=== PATIENT | male | born 1960 | race Caucasian/White ===

== ENCOUNTER 2017-10-25 11:09 | Outpatient (CLI) | payer BC | END 2017-10-25 11:10 | disposition home or self-care (01) | LOC: MRI 11:09 | PROVIDERS: ATTEND Orthopaedic Surgery | DX: M25.572 Pain in left ankle and joints of left foot (principal); M67.962 Unspecified disorder of synovium and tendon, left lower leg; M76.62 Achilles tendinitis, left leg | CPT/HCPCS: 70250; 71010; 74000 ==

== ENCOUNTER 2018-12-01 18:04 | Emergency (ER) | payer OTHER ==
[2018-12-01] MEDS ORDERED: Morphine 4 MG/ML VIAL ONE (18:58)
[2018-12-01 19:13] LABS: #Basophils 0.1 thou/uL (0.0-0.2); #Eosinphils 0.1 thou/uL (0.0-0.7); #Lymphocytes 2.1 thou/uL (1.20-3.40); #Monocytes 0.6 thou/uL (0.11-0.59); #Neutrophils 2.8 thou/uL (1.40-6.50); %Basophils 1.4 % (0.0-1.0); %Eosinophils 1.3 % (0.0-10.0); %Lymphocytes 37.3 % (21.0-51.0); %Monocytes 10.1 % (0.0-10.0); %Neutrophils 49.8 % (42.0-75.0); Mean Corpuscular HGB CONC 33.8 g/dL (32.0-36.0); Mean Corpuscular Hemoglobin 31.2 pg (27.0-31.0); Mean Corpuscular Volume 92.1 fL (78.0-98.0); Mean Platelet Volume 8.6 fL (7.4-10.4); Platelet Count 203 thou/uL (130-400); RBC Distribution Width 11.5 % (11.5-14.5); White Blood Cell (WBC) Count 5.6 thou/uL (4.8-10.8)
--- NOTE | 2018-12-01 19:27 | RAD ---
LUMBAR SPINE THREE VIEWS: HISTORY: Low stabbing back pain for two weeks. FINDINGS: No evidence for acute fracture or dislocation. Very mild disk osteophytosis and facet arthrosis bhardwaj ges. No malalignment. IMPRESSION: 1. Mild lumbar spondylosis. 2. No fracture, dislocation, or other acute process. POS: [facility]
[2018-12-01 19:38] LABS: ALT (SGPT) Less than 7 U/L (8-55); AST (SGOT) 13 U/L (5-34); Albumin 4.1 g/dL (3.5-5.0); Alkaline Phosphatase 78 U/L (40-150); Anion Gap 13 mmol/L (10-20); BUN (Urea Nitrogen) 16 mg/dL (8.4-25.7); Bilirubin, Total 0.4 mg/dL (0.2-1.2); Calc. Creatinine Clearance 0 mL/min (70-130); Calcium 9.3 mg/dL (7.8-10.44); Carbon Dioxide 28 mmol/L (22-29); Chloride 103 mmol/L (98-107); Estimated GFR-MDRD 72; Glucose 92 mg/dL (70-105); Lipase 22 U/L (8-78); Potassium 3.8 mmol/L (3.5-5.1); Protein, Total 7.1 g/dL (6.0-8.3); Sodium 140 mmol/L (136-145)
[2018-12-01] MEDS ORDERED: Ketorolac Tromethamine 30 MG/ML VIAL ONE (19:53)
[2018-12-01] MEDS ORDERED: Dexamethasone 4 mg/ml Vial ONE (19:53)
[2018-12-01 20:10] LABS: Bilirubin Negative (Negative); Blood, Urine Negative (Negative); Clarity CLEAR (Clear); Glucose, Urine (Dipstick) Negative (Negative); Leukocyte Negative (Negative); Nitrite Negative (Negative); Protein, Urine (Dipstick) Negative (Neg-Trace); Specific Gravity, Urine 1.015 (1.002-1.036)
== END 2018-12-01 20:20 | disposition home or self-care (01) ==
LOC: ERS 18:04
DX: M54.5 Low back pain (principal); I10 Essential (primary) hypertension; G20 Parkinson's disease; Z79.899 Other long term (current) drug therapy
CPT/HCPCS: 72100; 80053; 81003; 83690; 84484; 85025; 93005; 96374; 96375; J1100; J1885; J2270

== ENCOUNTER 2018-12-08 20:03 | Emergency (ER) | payer OTHER ==
[2018-12-08] MEDS ORDERED: Fentanyl 100 MCG/2 ML VIAL ONE (20:46)
[2018-12-08] MEDS ORDERED: Ondansetron PF 4 MG/2 ML Vial ONE (20:46)
[2018-12-08] MEDS ORDERED: Ketorolac Tromethamine 30 MG/ML VIAL ONE (20:46)
[2018-12-08 20:47] LABS: #Eosinphils 0.1 thou/uL (0.0-0.7); #Lymphocytes 2.7 thou/uL (1.20-3.40); #Monocytes 0.5 thou/uL (0.11-0.59); #Neutrophils 3.4 thou/uL (1.40-6.50); %Basophils 0.6 % (0.0-1.0); %Eosinophils 1.7 % (0.0-10.0); %Lymphocytes 40.1 % (21.0-51.0); %Monocytes 7.9 % (0.0-10.0); %Neutrophils 49.6 % (42.0-75.0); Hemoglobin 14.4 g/dL (14.0-18.0); Mean Corpuscular HGB CONC 34.1 g/dL (32.0-36.0); Mean Corpuscular Hemoglobin 31.6 pg (27.0-31.0); Mean Corpuscular Volume 92.7 fL (78.0-98.0); Mean Platelet Volume 7.6 fL (7.4-10.4); Platelet Count 222 thou/uL (130-400); RBC Distribution Width 11.7 % (11.5-14.5); Red Blood Cell (RBC) Count 4.56 mill/uL (4.70-6.10); White Blood Cell (WBC) Count 6.8 thou/uL (4.8-10.8)
[2018-12-08 21:04] LABS: ALT (SGPT) Less than 7 U/L (8-55); AST (SGOT) 14 U/L (5-34); Albumin 4.4 g/dL (3.5-5.0); Alkaline Phosphatase 91 U/L (40-150); Anion Gap 14 mmol/L (10-20); BUN (Urea Nitrogen) 13 mg/dL (8.4-25.7); Bilirubin, Total 0.6 mg/dL (0.2-1.2); Calc. Creatinine Clearance 0 mL/min (70-130); Calcium 9.6 mg/dL (7.8-10.44); Carbon Dioxide 29 mmol/L (22-29); Chloride 101 mmol/L (98-107); Estimated GFR-MDRD 63; Globulin 3.2 g/dL (2.4-3.5); Glucose 93 mg/dL (70-105); Lipase 22 U/L (8-78); Potassium 3.7 mmol/L (3.5-5.1); Protein, Total 7.6 g/dL (6.0-8.3); Sodium 140 mmol/L (136-145)
--- NOTE | 2018-12-08 23:26 | CT ---
CT ABDOMEN AND PELVIS WITHOUT CONTRAST STONE PROTOCOL: History: Flank pain. Comparison: None. FINDINGS: There is concern for a paraspinal mass at the level of the lower thoracic spine at T8 and T9 which is incompletely evaluated and measures 3.1 x 3.9 cm in transverse x AP dimension with unknown craniocau salomón length which extends outside the plane of view. No osseous erosion is appreciated. Small left effusion. No pericardial effusion. Subtle hypodensity hepatic segment 4A, likely a cyst. There appear to be prior proctectomy changes. Hypodensity inter pole of left kidney, likely a cyst. No nephroureterolithiasis or hydroureteronephrosis. No secondary evidence of recently passed stone. N o calculus within the urinary bladder. No adenopathy is seen of the pelvic side rasmussen. No retroperito vanessa adenopathy. Small central hernia containing fat, image 51 with a 1 cm hiatus which is supraumbil ical. No dilated loops of large or small bowel. The appendix is visualized and is normal. There is mild nod ular thickening at the right pararenal fascia at the caudal aspect of the inferior pole right kidney of uncertain significance. No acute osseous abnormality. IMPRESSION: 1. Incompletely evaluated left paraspinal mass mid thoracic spine as described. A thoracic spine MRI with and without contrast is recommended for further evaluation. Differential includes neurogenic gopi or and less likely an extramedullary hematopoiesis. No underlying erosion of the adjacent vertebrae. 2. Left renal cyst. 3. No nephroureterolithiasis or hydroureteronephrosis. No secondary evidence of recently passed stone . 4. Small supraumbilical right paramidline fat containing ventral hernia, post-surgical in nature, as there appears to be prior prostatectomy changes. POS: [facility]
== END 2018-12-08 22:58 | disposition home or self-care (01) ==
LOC: ERS 20:03
DX: M51.84 Other intervertebral disc disorders, thoracic region (principal); G20 Parkinson's disease; Z79.899 Other long term (current) drug therapy; Z79.1 Long term (current) use of non-steroidal anti-inflammatories (NSAID)
CPT/HCPCS: 74176; 80053; 83690; 85025; 96361; 96374; 96375; J1885; J2405; J3010

== ENCOUNTER 2018-12-19 08:10 | Day surgery (SDC) | payer OTHER ==
[2018-12-18 12:37] VITALS: BMI 34.5
[2018-12-19 08:35] LABS: Prothrombin Time 12.9 SEC (12.0-14.7)
[2018-12-19 08:36] LABS: Hemoglobin 14.6 g/dL (14.0-18.0); Mean Corpuscular HGB CONC 33.2 g/dL (32.0-36.0); Mean Corpuscular Hemoglobin 30.9 pg (27.0-31.0); PTT 27.6 SEC (22.9-36.1); Platelet Count 209 thou/uL (130-400); RBC Distribution Width 11.6 % (11.5-14.5); Red Blood Cell (RBC) Count 4.72 mill/uL (4.70-6.10); White Blood Cell (WBC) Count 4.8 thou/uL (4.8-10.8)
[2018-12-19] MEDS ORDERED: Sodium Chloride 0.9% 10 ML ONE (09:27)
[2018-12-19] MEDS ORDERED: Sodium Bicarbonate 2.5 MEQ/5 ML VIAL ONE (10:35)
[2018-12-19] MEDS ORDERED: Fentanyl 100 MCG/2 ML VIAL ONE (10:35)
[2018-12-19] MEDS ORDERED: Midazolam HCl 2 mg/2 ml Vial ONE (10:36)
--- NOTE | 2018-12-19 17:20 | CT ---
CT GUIDED BIOPSY OF LEFT PARASPINOUS MASS 12/19/18 CLINICAL HISTORY: Soft tissue mass of indeterminate etiology of the left paraspinous region of the medial left elijah tho rax. PROCEDURE: Informed consent was obtained. The patient was escorted to the Procedural Suite and placed in the pro ne position. The patient's posterior thorax was then prepped and draped in the standard sterile fash ion. Topical anesthesia was achieved with buffered 1% lidocaine. A small skin incision was made throu gh which a 17 gauge trocar was advanced to the leading edge of the mass. The inner stylet was removed and subsequently three core specimens were acquired of the mass. These were submitted to the patholo gist during the procedure and the specimens were deemed adequate for interpretation. Therefore, all d evices were removed from the patient. There were no procedural complications. Patient tolerated the p rocedure well. Patient was then transferred to Radiology holding for continued observation prior to d ischarge in stable condition. Conscious sedation was administered for the duration of the procedure during which time patient was m onitored by the radiology nurse. Approximate time of conscious sedation monitoring is one hour. IMPRESSION: Technically successful CT guided percutaneous biopsy of left paraspinous mass. Pathology results are pending. POS: [facility]
== END 2018-12-19 12:20 | disposition home or self-care (01) ==
LOC: CT 08:10
PROVIDERS: ATTEND Neurological Surgery
DX: M54.6 Pain in thoracic spine (principal); M53.84 Other specified dorsopathies, thoracic region; J45.909 Unspecified asthma, uncomplicated; G20 Parkinson's disease; F32.9 Major depressive disorder, single episode, unspecified; E66.9 Obesity, unspecified; Z68.34 Body mass index [BMI] 34.0-34.9, adult; Z79.899 Other long term (current) drug therapy
CPT/HCPCS: 72128; 77012; 85027; 85610; 85730; 88184; 88233; 88262; 88291; 88305; 88333; 88334; J2250; J3010

== ENCOUNTER 2018-12-22 16:28 | Emergency (ER) | payer OTHER ==
[2018-12-22] MEDS ORDERED: ISOVUE-370 76%-LOCM 1 ML ONE (16:58)
[2018-12-22] MEDS ORDERED: Morphine 4 MG/ML VIAL ONE (17:10)
[2018-12-22] MEDS ORDERED: Ondansetron PF 4 MG/2 ML Vial ONE (17:10)
[2018-12-22 17:20] LABS: #Basophils 0.1 thou/uL (0.0-0.2); #Lymphocytes 1.7 thou/uL (1.20-3.40); #Monocytes 0.3 thou/uL (0.11-0.59); #Neutrophils 2.1 thou/uL (1.40-6.50); %Basophils 1.6 % (0.0-1.0); %Eosinophils 1.2 % (0.0-10.0); %Lymphocytes 40.6 % (21.0-51.0); %Monocytes 6.2 % (0.0-10.0); %Neutrophils 50.4 % (42.0-75.0); Hemoglobin 14.8 g/dL (14.0-18.0); Mean Corpuscular HGB CONC 33.6 g/dL (32.0-36.0); Mean Corpuscular Hemoglobin 31.6 pg (27.0-31.0); Mean Corpuscular Volume 94.1 fL (78.0-98.0); Mean Platelet Volume 8.1 fL (7.4-10.4); Platelet Count 186 thou/uL (130-400); RBC Distribution Width 11.6 % (11.5-14.5); Red Blood Cell (RBC) Count 4.67 mill/uL (4.70-6.10); White Blood Cell (WBC) Count 4.1 thou/uL (4.8-10.8)
[2018-12-22 17:26] LABS: Bilirubin Negative (Negative); Blood, Urine Negative (Negative); Clarity CLEAR (Clear); Glucose, Urine (Dipstick) Negative (Negative); Leukocyte Negative (Negative); Nitrite Negative (Negative); Protein, Urine (Dipstick) Negative (Neg-Trace); Specific Gravity, Urine 1.026 (1.002-1.036); Urobilinogen 0.2 mg/dL (0.2-1.0)
[2018-12-22 17:32] LABS: ALT (SGPT) 7 U/L (8-55); AST (SGOT) 25 U/L (5-34); Albumin 4.6 g/dL (3.5-5.0); Alkaline Phosphatase 95 U/L (40-150); Anion Gap 17 mmol/L (10-20); BUN (Urea Nitrogen) 13 mg/dL (8.4-25.7); Bilirubin, Total 0.6 mg/dL (0.2-1.2); Calc. Creatinine Clearance 0 mL/min (70-130); Calcium 9.9 mg/dL (7.8-10.44); Carbon Dioxide 28 mmol/L (22-29); Chloride 102 mmol/L (98-107); Estimated GFR-MDRD 70; Globulin 3.4 g/dL (2.4-3.5); Glucose 92 mg/dL (70-105); Lipase 35 U/L (8-78); Potassium 3.7 mmol/L (3.5-5.1); Sodium 143 mmol/L (136-145)
--- NOTE | 2018-12-22 18:37 | CT ---
ABDOMEN CT WITH CONTRAST PELVIC CT WITH CONTRAST: History: Evaluate for small bowel obstruction. Abdominal pain. Last bowel movement four days ago. Comparison: 12-08-18 FINDINGS: ABDOMEN CT: Redemonstration of a small left sided effusion with adjacent parenchymal changes. There is a left par aspinal mass which has been recently biopsied. Heart size is normal. No pericardial effusion. The steven cending thoracic aorta and abdominal aorta is normal caliber. No periaortic fat stranding. Portal vein is patent. Unremarkable gallbladder. There is a well circumscribed hypodensity in the liver measuring 0.7 cm. The lesion cannot be further characterized. There is a larger well circumscribed hypodense lesion in the left hepatic lobe measur ing 0.9 cm. Additional smaller hypodense lesions are noted. Spleen, pancreas, and adrenal glands are unremarkable. No gastrohepatic, retrocrural or periportal lymphadenopathy. Symmetric enhancement of the kidneys. No obstructive uropathy. 3 cm cyst in the left kidney. Exophyti c enhancing focus emanating from the lower pole of the right kidney is incompletely evaluated. Possib ility of a right renal mass cannot be excluded. Correlation made with previous CT demonstrates a hypo dense lesion. This lesion has an attenuation coefficient of 77 Hounsfield units and measures 1.4 x 1. 4 cm. No mesenteric mass, lymphadenopathy, free air, or free fluid. A ventral abdominal hernia containing m esenteric fat. Limited evaluation of the alimentary canal due to lack of oral contrast. Gastric mucosa, duodenum, an d multiple small bowel loops have an overall normal caliber. No evidence of small bowel obstruction. Ileocecal junction is normal. Normal caliber appendix. Scattered diverticulum in the colon. No eviden ce of obstruction. No evidence of diverticulitis. CT PELVIS: No mass, lymphadenopathy, free air or free fluid. Unremarkable urinary bladder. No blastic lesions in the osseous structures. There is remottling of the left aspect of the T8 verteb ral body as well as the left T8 rib. IMPRESSION: 1. No evidence of small bowel obstruction. 2. Re-demonstration of the left paraspinal mass. This mass has been biopsied. Pathologic diagnosis pe nding. 3. There appears to be an enhancing solid lesion in the lower pole of the right kidney, incompletely evaluated. 4. Left sided effusion with atelectasis or pneumonia. POS: [facility]
== END 2018-12-22 18:54 | disposition home or self-care (01) ==
LOC: ERS 16:28
DX: K59.00 Constipation, unspecified (principal); G20 Parkinson's disease; Z79.899 Other long term (current) drug therapy
CPT/HCPCS: 74177; 80053; 81003; 82274; 83690; 85025; 96361; 96374; 96375; J2270; J2405; Q9966

== ENCOUNTER 2019-01-02 09:53 | Outpatient (CLI) | payer OTHER ==
--- NOTE | 2019-01-02 13:54 | PET ---
PET CT FROM SKULL BASE THROUGH THE MID THIGH: INDICATION: History of extramedullary plasmacytoma. RADIOPHARMACEUTICAL: 11.9 mCi F18-FDG IV. TECHNIQUE: PET CT images were obtained from the skull base through the mid thighs following introduction of the radiopharmaceutical IV. CT images were obtained for attenuation correction purposes only. Compariso ns are made with prior CT of the abdomen and pelvis dated 12/22/2018 and 12/08/2018. FINDINGS: The biodistribution for the examination appears acceptable. HEAD AND NECK: No hypermetabolic lymphadenopathy or mass is identified. There is partial visualization of a deep brain stimulator with a generator pack overlying the left ch est wall. THORAX: The known paraspinal soft tissue mass seen at the T8 vertebral level causing bony erosion of the timoteo cent left 8th rib and left T8 vertebra is redemonstrated with a peak SUV activity of 4.84 and mean ac tivity of 4.28. There is additional paraspinal soft tissue mass seen adjacent to the left aspect of T6 measuring 1.92 cm with a peak SUV activity of 8.87 and mean activity of 8.49. There is a small left pleural effusi on. No hypermetabolic pulmonary nodule is evident. No hypermetabolic lymphadenopathy is seen within the hilar region or axillary region. ABDOMEN: There is a hypermetabolic soft tissue nodule measuring 1.5 cm extending off the inferior pole of the right kidney. Peak SUV activity associated with this nodule is 6.22 and mean activity is 6.22. No additional hypermetabolic mass or lymphadenopathy is evident. SKIN AND OSSEOUS STRUCTURES: There is a lytic hypermetabolic lesion involving the left acetabulum measuring 2.7 cm with a mean upt ian of 6.15 peak uptake of 7.27. No additional hypermetabolic skin or osseous lesion is evident. Th ere is some urinary contamination seen along the perineal region. IMPRESSION: 1. Abnormal PET scan. There is hypermetabolic activity involving 2 associated paraspinal soft tissu e masses at T6 and T8 consistent with the patient's history of extramedullary plasmacytoma. 2. There is a hypermetabolic exophytic soft tissue lesion mass involving the lower pole of the right kidney measuring up to 1.5 cm suspicious for renal malignancy. 3. Hypermetabolic lytic lesion involving the left acetabulum, likely related to osseous involvement of the patient's known plasmacytoma. 4. Small left pleural effusion. 5. Deep brain stimulator. POS: [facility]
== END 2019-01-02 09:54 | disposition home or self-care (01) ==
LOC: PET 09:53
PROVIDERS: ATTEND Internal Medicine Hematology & Oncology
DX: C90.20 Extramedullary plasmacytoma not having achieved remission (principal); R94.8 Abnormal results of function studies of other organs and systems; N28.89 Other specified disorders of kidney and ureter; M89.9 Disorder of bone, unspecified; J90 Pleural effusion, not elsewhere classified; Z96.89 Presence of other specified functional implants
CPT/HCPCS: 78815; A9552

== ENCOUNTER 2019-01-06 08:54 | Day surgery (SDC) | payer OTHER ==
[2019-01-03 11:18] VITALS: BMI 34.4
[2019-01-06] MEDS ORDERED: Sodium Bicarbonate 2.5 MEQ/5 ML VIAL ONE (09:48)
[2019-01-06] MEDS ORDERED: Fentanyl 100 MCG/2 ML VIAL ONE (09:49)
[2019-01-06] MEDS ORDERED: Midazolam HCl 2 mg/2 ml Vial ONE (09:49)
--- NOTE | 2019-01-06 14:10 | CT ---
CT GUIDED BONE MARROW BIOPSY POSTERIOR LEFT ILIAC SPINE: INDICATIONS: Prior biopsy revealed evidence of plasmocytoma. Bone marrow biopsy is requested to assess for multip le myeloma. The findings were discussed with the patient. ANESTHESIA: Conscious sedation was administered with 50 mcg of fentanyl IV and 1 mg Versed IV prior to the patien t procedure. TECHNIQUE: Arrow 11 gauge biopsy instrument was utilized and 10 mL of bone marrow aspirate was obtained and give n to the medical technologist clinical at CT. A core biopsy through the bone was then obtained, and patholog y confirmed adequacy. PROCEDURE NOTE: The patient was placed prone on the CT table. CT was performed to identify the entry site. The over lying skin was prepped and draped in a sterile manner. Local anesthesia was administered with Lidoca ine and bicarbonate. Conscious sedation was administered as noted above. An 11 gauge needle with trocar in place was introduced into the posterior left iliac spine, under CT guidance. The trocar was removed, and bone marrow aspirate was obtained and given to the pathology t echnician. The Arrow automated instrument was then attached to the needle, and a 2 cm length core bi opsy was obtained and given to pathology. Post procedure CT showed no significant hemorrhage or bone abnormality. The patient tolerated the procedure well, and there were no problems or complications. POS: [facility]
--- NOTE | 2019-01-07 14:19 | CT ---
CT GUIDED BONE MARROW BIOPSY POSTERIOR LEFT ILIAC SPINE: INDICATIONS: Prior biopsy revealed evidence of plasmocytoma. Bone marrow biopsy is requested to assess for multip le myeloma. The findings were discussed with the patient. ANESTHESIA: Conscious sedation was administered with 50 mcg of fentanyl IV and 1 mg Versed IV prior to the patien t procedure. TECHNIQUE: Arrow 11 gauge biopsy instrument was utilized and 10 mL of bone marrow aspirate was obtained and give n to the anesthesiology technologist at CT. A core biopsy through the bone was then obtained, and patholog y confirmed adequacy. PROCEDURE NOTE: The patient was placed prone on the CT table. CT was performed to identify the entry site. The over lying skin was prepped and draped in a sterile manner. Local anesthesia was administered with Lidoca ine and bicarbonate. Conscious sedation was administered as noted above. An 11 gauge needle with trocar in place was introduced into the posterior left iliac spine, under CT guidance. The trocar was removed, and bone marrow aspirate was obtained and given to the pathology t echnician. The Arrow automated instrument was then attached to the needle, and a 2 cm length core bi opsy was obtained and given to pathology. Post procedure CT showed no significant hemorrhage or bone abnormality. The patient tolerated the procedure well, and there were no problems or complications.
== END 2019-01-06 11:50 | disposition home or self-care (01) ==
LOC: RAD 08:54
PROVIDERS: ATTEND Internal Medicine Hematology & Oncology
PROC: 07DR3ZX Extraction of Iliac Bone Marrow, Percutaneous Approach, Diagnostic (ICD-10-PCS; principal; 2019-01-06)
DX: C90.20 Extramedullary plasmacytoma not having achieved remission (principal); G20 Parkinson's disease; F32.9 Major depressive disorder, single episode, unspecified; K21.9 Gastro-esophageal reflux disease without esophagitis; K59.00 Constipation, unspecified; J45.909 Unspecified asthma, uncomplicated; Z79.899 Other long term (current) drug therapy
CPT/HCPCS: 20225; 77012; 85097; 88184; 88237; 88305; 88311; 88313; 88341; J2250; J3010

== ENCOUNTER 2019-01-09 10:23 | Outpatient (CLI) | payer OTHER ==
[2019-01-09] MEDS ORDERED: Iopamidol 370 76% 100 ML VIAL ONE (12:04)
--- NOTE | 2019-01-09 13:10 | CT ---
CT OF ABDOMEN PERFORMED WITH AND WITHOUT CONTRAST ENHANCEMENT: COMPARISON: PET scan 01/02/[address] 12/22/2018. HISTORY: Right renal mass evaluation using renal mass protocol. The patient also has a history of extramedull monae plasmacytoma. FINDINGS: A small left pleural effusion is seen. The left paravertebral soft tissue mass is again visualized. It is not seen in its entirety and difficult to compare for size. It has not decreased in size. Th ere appears to be some slightly greater extension along the posterior border of the aorta. Also, the re is worsening lytic bony change of the left 8th rib at the costovertebral junction and worsening ly tic bony change in the region of the left side of T8 vertebral body and pedicle region. No pathologi c fracture noted at this time. Two hypodense areas within the left lobe of the liver are subcentimeter in size, stable in appearance . The spleen, pancreas, and gallbladder regions are normal. Right and left adrenal glands are normal. Left renal cyst is again demonstrated. The lower pole tim l mass measures approximately 1.7 cm in size. It does show enhancement on precontrast images. It me asures 27 Hounsfield units increasing to 67 Hounsfield units on the arterial phase and decreasing sli ghtly to 40 on the delayed imaging. No significant periaortic or mesenteric adenopathy. A fat-conta ining supraumbilical hernia is noted. IMPRESSION: 1. Enhancing 1.7 cm lower pole exophytic right renal mass. The finding would be suspicious for a re nal cell carcinoma. 2. Although the left paravertebral soft tissue mass is not seen in its entirety, I think it has slig htly increased in size and there is definitely worsening lytic bony change of the left 8th rib at th e costovertebral junction and worsening lytic bony change along the left pedicle and body of T8. POS: [facility]
== END 2019-01-09 10:24 | disposition home or self-care (01) ==
LOC: BICCT 10:23
PROVIDERS: ATTEND Internal Medicine Hematology & Oncology
DX: C90.20 Extramedullary plasmacytoma not having achieved remission (principal); N28.89 Other specified disorders of kidney and ureter
CPT/HCPCS: 74170; Q9967

== ENCOUNTER 2019-01-21 08:21 | Day surgery (SDC) | payer OTHER ==
[2019-01-20 15:05] VITALS: BMI 34.4
[2019-01-21 08:35] LABS: Hemoglobin 13.9 g/dL (14.0-18.0); Mean Corpuscular HGB CONC 34.1 g/dL (32.0-36.0); Mean Corpuscular Hemoglobin 31.3 pg (27.0-31.0); Mean Corpuscular Volume 91.7 fL (78.0-98.0); Mean Platelet Volume 7.8 fL (7.4-10.4); Platelet Count 175 thou/uL (130-400); RBC Distribution Width 11.5 % (11.5-14.5); Red Blood Cell (RBC) Count 4.44 mill/uL (4.70-6.10); White Blood Cell (WBC) Count 6.1 thou/uL (4.8-10.8)
[2019-01-21 08:42] LABS: INR-International Normal Ratio 1.1; PTT 28.6 SEC (22.9-36.1); Prothrombin Time 14.1 SEC (12.0-14.7)
--- NOTE | 2019-01-21 14:00 | CT ---
FCT-guided biopsy of right renal mass: 01/21/2019 HISTORY: 58-year-old male with multiple myeloma who has a pedunculated enhancing small 1.7 cm tumor mass exoph ytically protruding inferiorly from the lower pole cortex of the right kidney. Suspicious for renal c ell carcinoma. TECHNIQUE: Signed informed consent obtained. Patient placed prone on CT table. Skin of right flank prepared and draped in usual sterile fashion. 25-gauge needle used to apply buffered lidocaine superficially. Unde r step CT guidance, 17-gauge introducer needle was incrementally advanced, first to the posterior lat eral abdominal wall just lateral to the psoas muscles, where additional buffered lidocaine was inject ed, then further advanced such that the distal tip was approximately 1 cm posterolateral to the targe nita small mass. Stylet was removed from the introducer needle. 18-gauge 10 cm biopsy needle was advan blossom in coaxial fashion through the introducer needle. Biopsy gun was fired, yielding core tissue samp le which was placed on a slide and given to Dr. Dacosta of pathology. The slide with touch preparation. 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 Another core biopsy sample was obtained, and placed into RPMI. The other specimen was placed into formalin. Needle was removed. Postbiopsy scanni ng medially shows, expected perirenal hematoma. No complications. Follow up scan in 2 hours later estrada wed no interval change in the minimal hematoma. Patient was released from the hospital, discharged ho mo without incident. IMPRESSION: Technically successful CT guided 18-gauge core biopsy x2 of pedunculated 1.7 cm tumor mass arising fr om lower pole cortex of right kidney. 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
== END 2019-01-21 14:00 | disposition home or self-care (01) ==
LOC: CT 08:21
PROVIDERS: ATTEND Radiology Neuroradiology
PROC: 0TB03ZX Excision of Right Kidney, Percutaneous Approach, Diagnostic (ICD-10-PCS; principal; 2019-01-21)
DX: C90.00 Multiple myeloma not having achieved remission (principal); G20 Parkinson's disease; F32.9 Major depressive disorder, single episode, unspecified; J45.909 Unspecified asthma, uncomplicated; Z79.899 Other long term (current) drug therapy; Z98.890 Other specified postprocedural states
CPT/HCPCS: 36415; 50200; 77012; 85027; 85610; 85730; 88305; 88333; 88334; 88341; 88342; 88360; J2250; J3010

== ENCOUNTER 2019-03-04 06:19 | Day surgery (SDC) | payer OTHER ==
[2019-03-03 15:44] VITALS: BMI 30.7
[2019-03-04] MEDS ORDERED: Bupivacaine/Epinephrine 0.25% 30 ML VIAL ONE (08:48)
[2019-03-04] MEDS ORDERED: Lidocaine 2% PF 5 ML VIAL ONE (08:48)
[2019-03-04] MEDS ORDERED: Fentanyl 100 MCG/2 ML VIAL ONE (08:52)
[2019-03-04] MEDS ORDERED: PROPOFOL 40 ML ONE (08:57)
--- NOTE | 2019-03-04 10:26 | RAD ---
CHEST ONE VIEW: History: Status post right sided Mediport placement. FINDINGS: Implantable device overlies the left chest. Right central line and injection port in place. No eviden ce for pneumothorax. No pleural effusion. No other acute intrathoracic disease. Heart size is normal. IMPRESSION: Unremarkable post right central line and injection port. Mild atherosclerosis of the aorta. No acute process. POS: [facility]
[2019-03-04] MEDS ORDERED: PROPOFOL 200 MG/20 ML VIAL ONE (14:16)
[2019-03-04] MEDS ORDERED: Lidocaine 1% PF 5 ML VIAL ONE (14:16)
--- NOTE | 2019-03-04 16:29 | OP ---
DATE OF PROCEDURE: 03/04/2019 PREOPERATIVE DIAGNOSIS: Plasma cell carcinoma. POSTOPERATIVE DIAGNOSIS: Plasma cell carcinoma. PROCEDURE PERFORMED: Tunnelled central and subcutaneous port (MediPort CT injectable). ANESTHESIA: General. ESTIMATED BLOOD LOSS: Minimal. COMPLICATIONS: None. SPECIMEN: None. FINDINGS: Tip of the catheter was at atriocaval junction. DESCRIPTION OF PROCEDURE: The patient was taken to the operating room and laid supine on the operating room table after sedation was obtained, bilateral neck and chest were shaved, prepped, and draped in a sterile fashion. Local anesthetic was infiltrated over the right internal jugular vein. Internal jugular vein cannulated using a 22-gauge finder needle, followed by Seldinger needle. Wire was passed into superior vena cava under fluoro guidance. A quita was made at the wire entrance site. A separate 3 cm incision made at the right upper chest. Subcutaneous pocket was made below the lower incision. Tubing for the MediPort tunneled from the inferior to superior incision. Introducer sheath placed over the wire into the superior vena cava under fluoro guidance. The dilator and wire removed. The end of the catheter sewed into the sheath. The sheath was peeled away. The tip of the catheter was at the atriocaval junction. MediPort tubing was cut to fit the MediPort at the lower incision, connected to the MediPort. The MediPort sewn to the chest wall in the subcutaneous pocket using Prolene. MediPort flushes and draws blood without difficulty. It was flushed with a heparin flush. Incisions were irrigated and closed using 3-0 Vicryl, 4-0 Monocryl, and Dermabond. The patient was sent to Recovery in stable condition. All instrument counts, needle counts, and lap counts were correct. Job ID: [id number]
== END 2019-03-04 10:50 | disposition home or self-care (01) ==
LOC: SDC 06:19
PROVIDERS: ATTEND Surgery
PROC: 0JH63WZ Insertion of Totally Implantable Vascular Access Device into Chest Subcutaneous Tissue and Fascia, Percutaneous Approach (ICD-10-PCS; principal; 2019-03-04)
DX: C90.10 Plasma cell leukemia not having achieved remission (principal); J30.81 Allergic rhinitis due to animal (cat) (dog) hair and dander; Z79.82 Long term (current) use of aspirin; Z79.899 Other long term (current) drug therapy; Z91.048 Other nonmedicinal substance allergy status
CPT/HCPCS: 71045; C1788; J0690; J1642; J2001; J2704; J3010

== ENCOUNTER 2019-04-14 01:28 | Emergency (ER) | payer OTHER ==
[2019-04-14] MEDS ORDERED: cefTRIAXone\\ROCEPHIN 1 GM VIAL ONE (02:11)
[2019-04-14 02:19] LABS: Mean Corpuscular Volume 99.2 fL (78.0-98.0)
[2019-04-14 02:25] LABS: #Eosinphils 0.1 thou/uL (0.0-0.7); #Monocytes 0.3 thou/uL (0.11-0.59); #Neutrophils 2.4 thou/uL (1.40-6.50); %Basophils 0.4 % (0.0-1.0); %Eosinophils 2.1 % (0.0-10.0); %Lymphocytes 25.1 % (21.0-51.0); %Monocytes 8.6 % (0.0-10.0); %Neutrophils 63.8 % (42.0-75.0); Mean Corpuscular HGB CONC 34.3 g/dL (32.0-36.0); Mean Corpuscular Hemoglobin 34.1 pg (27.0-31.0); Mean Platelet Volume 8.3 fL (7.4-10.4); Platelet Count 71 thou/uL (130-400); Platelet Morphology Comment Appears Decreased; RBC Distribution Width 13.6 % (11.5-14.5); Red Blood Cell (RBC) Count 3.24 mill/uL (4.70-6.10); White Blood Cell (WBC) Count 3.8 thou/uL (4.8-10.8)
[2019-04-14 02:30] LABS: ALT (SGPT) 9 U/L (8-55); AST (SGOT) 17 U/L (5-34); Albumin 3.6 g/dL (3.5-5.0); Alkaline Phosphatase 62 U/L (40-150); Anion Gap 8 mmol/L (10-20); BUN (Urea Nitrogen) 9 mg/dL (8.4-25.7); Bilirubin, Total 1.4 mg/dL (0.2-1.2); Calc. Creatinine Clearance 0 mL/min (70-130); Carbon Dioxide 29 mmol/L (22-29); Chloride 105 mmol/L (98-107); Estimated GFR-MDRD Greater than 90; Globulin 1.8 g/dL (2.4-3.5); Glucose 85 mg/dL (70-105); Magnesium 1.8 mg/dL (1.6-2.6); Potassium 3.4 mmol/L (3.5-5.1); Protein, Total 5.4 g/dL (6.0-8.3); Sodium 139 mmol/L (136-145)
[2019-04-14 03:41] LABS: Bilirubin Negative (Negative); Blood, Urine Negative (Negative); Clarity CLEAR (Clear); Glucose, Urine (Dipstick) Negative (Negative); Leukocyte Negative (Negative); Nitrite Negative (Negative); Protein, Urine (Dipstick) Negative (Neg-Trace); Specific Gravity, Urine 1.016 (1.002-1.036); Urobilinogen 0.2 mg/dL (0.2-1.0)
--- NOTE | 2019-04-14 07:58 | CT ---
PRELIMINARY REPORT/[facility]/EMERGENCY AFTER HOURS PROCEDURE: EXAM: CT Abdomen and Pelvis With Contrast EXAM DATE/TIME: 04/14/2019 2:56 AM CLINICAL HISTORY: 59 years old, male; Patient HX: Er 6. 59 yo m presents to ED with C/O fever. PT reports he had a daron ured temperature of 101 at home earlier tonight. PT currently has chemotherapy treatments x2 per week on wednesdays and due to multiple myeloma. PT also reports some abdominal pain, abdome n tender, to the epigastric region, to the left lower quadrant. TECHNIQUE: Imaging protocol: Axial computed tomography images of the abdomen and pelvis with intravenous contras t. Coronal reformatted images were created and reviewed. COMPARISON: No relevant prior studies available. FINDINGS: Lungs: No consolidations. ABDOMEN: Liver: Hypodensities in the left lobe of the liver are likely cysts. Gallbladder and bile ducts: No calcified stones. No ductal dilation. Pancreas: No mass or ductal dilation. Spleen: No mass. Adrenals: No mass. Kidneys and ureters: Simple cysts in the left kidney. No enhancing mass or hydronephrosis. Stomach and bowel: No obstruction or mucosal thickening. Appendix: No evidence of appendicitis. PELVIS: Bladder: Normal. Reproductive: The prostate is not visualized. ABDOMEN and PELVIS: Intraperitoneal space: No free air or free fluid. Bones/joints: Heterogeneous appearance of the bones and lucent lesions in a few vertebral bodies and pelvis consistent reported history of multiple myeloma. Soft tissues: Small supraumbilical fat containing hernia. Vasculature: No abdominal aortic aneurysm. Lymph nodes: No lymphadenopathy. IMPRESSION: No acute findings in the abdomen or pelvis. Thank you for allowing us to participate in the care of your patient. Dictated and Authenticated by: Rafaela Figueredo MD 04/14/2019 4:13 AM Central Time ([place] & [place]) FINAL REPORT EMERGENT AFTER HOURS CT ABD AND PELVIS WITH IV CONTRAST: HISTORY: Abdominal pain and fever. COMPARISON: 01/09/2019 and 12/22/2018. IMPRESSION: 1. There are overall stable small hypodense lesions within the left hepatic lobe measuring less than 1 cm with a 10 mm difficult to characterize hypodense lesion in the more inferior aspect lateral segment left hepatic lobe. 2. Resolution of left pleural effusion. In addition, there has been considerable interval decrease in size of the left paravertebral soft tissue mass adjacent to the lower thoracic spine. Minimal persistent stranding is present in this region. 3. Left renal cyst measuring 3 cm. 4. Hysterectomy. 5. Previously noted exophytic mass at the inferior pole right kidney is less conspicuous on the curre nt exam. However, there is a small 9 mm nodule seen just inferior and posterior to this location adjacent to the right psoas muscle. The exact etiology for this low density nodule is uncertain. A s mall metastatic lesion could not be entirely excluded, and short interval follow-up examination is recommended in 3-4 months. 6. Stable small fat-containing ventral abdominal wall hernia in a supraumbilical location. 7. Several lytic lesions within the pelvis largest in the left iliac bone measuring 3 cm. A few scatt ered lucencies are also seen within lower thoracic vertebral bodies, the largest involving the T11 vertebral body. Findings may be related to metastatic disease or multiple myeloma. Provided clinical history is that patient has multiple myeloma. Clinical correlation is recommended. 8. Small nodule which is again of uncertain etiology adjacent the right psoas muscle was not mentione d on the initial preliminary report. Follow-up evaluation is recommended as described above. Code T Transcribed Date/Time: 04/14/2019 8:28 AM ADDENDUM: On the final report, there was mention of hysterectomy in impression #4. That is incorrect, and that should read evidence of prostatectomy.
--- NOTE | 2019-04-14 09:16 | RAD ---
SINGLE VIEW OF THE CHEST: COMPARISON: 03/04/2017. HISTORY: Fever at home. The patient is on chemotherapy. FINDINGS: A single view of the chest shows a normal-size cardiomediastinal silhouette. The MediPort and genera tor are unchanged in position. There is no evidence of consolidation, mass, or pleural effusion. IMPRESSION: No evidence of acute cardiopulmonary disease. POS: [facility]
--- NOTE | 2019-04-14 09:20 | RAD ---
SINGLE VIEW OF THE CHEST: HISTORY: Fever. COMPARISON: 03/04/2019. FINDINGS: A lateral view of the chest shows no evidence of consolidation, mass, or pleural effusion. The bones are unremarkable. IMPRESSION: No evidence of acute cardiopulmonary disease. POS: [facility]
[2019-04-14] MEDS ORDERED: Iopamidol 370 76% 100 ML VIAL ONE (09:22)
== END 2019-04-14 04:34 | disposition home or self-care (01) ==
LOC: ERS 01:28
DX: R50.2 Drug induced fever (principal); T45.1X5A Adverse effect of antineoplastic and immunosuppressive drugs, initial encounter
CPT/HCPCS: 36415; 71045; 74177; 80053; 81003; 83605; 83735; 85025; 87040; 87086; 87804; 96361; 96365; J0696; Q9967

== ENCOUNTER 2019-09-11 08:14 | Outpatient (CLI) | payer OTHER ==
--- NOTE | 2019-09-11 13:26 | NM ---
RADIONUCLIDE GASTRIC EMPTYING SCAN: HISTORY: Epigastric pain. Nausea, vomiting RADIOPHARMACEUTICAL: 2 mCi technetium 99m sulfur colloid administered orally in scrambled eggs. FINDINGS: Gastric emptying at different times is as follows: 1 hour: 27% 2 hours: 44% 3 hours: 57% 4 hours: 78% The calculated gastric emptying half-time [id number]. IMPRESSION: Delayed gastric emptying.
== END 2019-09-11 08:15 | disposition home or self-care (01) ==
LOC: NM 08:14
PROVIDERS: ATTEND Physician Assistant Medical
DX: K59.00 Constipation, unspecified (principal); R11.2 Nausea with vomiting, unspecified; R10.13 Epigastric pain; R10.12 Left upper quadrant pain
CPT/HCPCS: 78264; A9541

== ENCOUNTER 2019-09-15 22:23 | Inpatient (IN) | payer OTHER ==
--- NOTE | 2019-09-15 23:29 | RAD ---
EXAM: Chest one view: HISTORY: Cough feeling faint COMPARISON: 04/14/2019 FINDINGS: Heart size: Within normal limits. Lungs: Bilateral vascular congestion with mild patchy interstitial and alveolar perihilar and lower l obe opacities possibly representing some mild edema versus symmetric atypical pneumonia or pneumonitis. No evidence for confluent pneumonia, pleural effusion, acute edema, or pneumothorax, or other signifi cant acute process. IMPRESSION: Bilateral vascular congestion and possible early or mild edema or atypical pneumonia or pneumonitis.
[2019-09-15 23:56] LABS: Hemoglobin 8.4 g/dL (14.0-18.0); Mean Corpuscular HGB CONC 33.2 g/dL (32.0-36.0); Mean Corpuscular Hemoglobin 31.5 pg (27.0-31.0); Mean Corpuscular Volume 94.8 fL (78.0-98.0); Mean Platelet Volume 8.4 fL (7.4-10.4); Platelet Count 42 thou/uL (130-400); RBC Distribution Width 13.6 % (11.5-14.5); Red Blood Cell (RBC) Count 2.68 mill/uL (4.70-6.10); White Blood Cell (WBC) Count 6.7 thou/uL (4.8-10.8)
[2019-09-16 00:01] LABS: Bacteria/HPF None Seen HPF (None Seen); Bilirubin Negative (Negative); Blood, Urine Negative (Negative); Clarity Clear (Clear); Glucose, Urine (Dipstick) Normal (Negative); Leukocyte Negative Leu/uL (Negative); Nitrite Negative (Negative); Protein, Urine (Dipstick) 50 mg/dL (Neg-Trace); RBC/HPF 0-3 HPF (0-3); Squamous Epithelial 0-3 HPF (0-3); WBC/HPF 0-3 HPF (0-3)
[2019-09-16 00:08] LABS: Band 38 % (5-11); Lymphocytes 11 % (21-51); MDiff Complete? YES; Metamyelocyte 1 % (0-0); Monocytes 5 % (0-10); Neutrophil 45 % (42-75); Platelet Morphology Comment Appears Decreased
[2019-09-16 00:16] LABS: ALT (SGPT) Less than 7 U/L (8-55); AST (SGOT) 61 U/L (5-34); Albumin 3.1 g/dL (3.5-5.0); Alkaline Phosphatase 139 U/L (40-110); Anion Gap 12 mmol/L (10-20); BUN (Urea Nitrogen) 17 mg/dL (8.4-25.7); Bilirubin, Total 1.1 mg/dL (0.2-1.2); Calc. Creatinine Clearance 0 mL/min (70-130); Calcium 7.5 mg/dL (7.8-10.44); Carbon Dioxide 27 mmol/L (22-29); Chloride 102 mmol/L (98-107); Estimated GFR-MDRD 53; Globulin 2.1 g/dL (2.4-3.5); Glucose 109 mg/dL (70-105); Lipase 6 U/L (8-78); Protein, Total 5.2 g/dL (6.0-8.3); Sodium 138 mmol/L (136-145)
[2019-09-16 00:19] LABS: Potassium 2.9 mmol/L (3.5-5.1)
[2019-09-16] MEDS ORDERED: Potassium Chloride 20 MEQ TAB ONE (00:33)
[2019-09-16] MEDS ORDERED: Magnesium 2 GM/50 ML BAG (IN WATER) ONE (01:04)
[2019-09-16] MEDS ORDERED: Acetaminophen 325 MG TAB PO PRN ×2 (04:12→04:56)
[2019-09-16] MEDS ORDERED: Ondansetron ODT 4 MG TAB SL PRN (04:12)
[2019-09-16] MEDS ORDERED: Sodium Chloride 0.9% 1,000 ML IV SCH (04:12)
[2019-09-16] MEDS ORDERED: Ondansetron PF 4 MG/2 ML Vial IVP PRN ×2 (04:12→04:56)
[2019-09-16] MEDS ORDERED: Dextrose 5%-Lactated Ringers 1,000 ML IV SCH (04:56)
[2019-09-16] MEDS ORDERED: HYDROcodone/Acetaminophen 7.5/325 mg Tablet PO PRN (04:56)
[2019-09-16] MEDS ORDERED: Midodrine HCl 5 MG TAB PO SCH (05:00)
--- NOTE | 2019-09-16 05:29 | HP ---
PRESENTING COMPLAINT: Near syncope. HISTORY OF PRESENT ILLNESS: Mr. Dinesh Medellin is a 59-year-old male with past medical history of prostate cancer, status post resection, currently in remission, multiple myeloma, , currently on chemotherapy with chyluria, who was admitted after progressive dizziness and weakness, and developed near syncope today while trying to get up. The patient thinks he passed out for about 5 seconds. Episode was witnessed by . He denies any seizure activity. The patient states he has been getting dizzy since the last 2 weeks, which has been progressive. On presentation to the ED, his blood pressure was in the 80s/40s. He was given 3 L of fluid with persistent worsening low blood pressures. The patient denies any diarrhea. He admit to regular p.o. intake, but has been having postprandial emesis since the last 1 week. He had EGD done about a month ago that was unremarkable. He had gastric emptying study done recently and awaiting results. The patient states he typically has low blood pressure of 80s to 90s. He does not take any blood pressure medication. PAST MEDICAL HISTORY: Significant for hypotension, history of prostate cancer, status post resection, history of anxiety, presently diagnosed with multiple myeloma, status post stem cell transplant 4 months ago, currently on maintenance chemotherapy. History of Parkinson's disease, treated with stimulator pump. PAST SURGICAL HISTORY: Prostate resection as well as stem cell transplant. ALLERGIES: SIGNIFICANT FOR CAT DANDERS. SOCIAL HISTORY: The patient resides in the community with his spouse, fully functional at baseline. No history of tobacco, alcohol, or illicit drug use. REVIEW OF SYSTEMS: All systems reviewed x14 were negative except as mentioned above. FAMILY HISTORY: Noncontributory. PHYSICAL EXAMINATION: VITAL SIGNS: Current vitals, blood pressure of 76/41, pulse of 101, respiratory rate of 18, O2 saturation 98% on room air. GENERAL: Average built middle-age male, not in any distress. HEENT: Head is atraumatic, normocephalic. True protrusion on bilateral frontal scalp area consistent with stimulator pump electrodes implant. Pupils are equal and reactive to light. Slightly pale conjunctiva. NECK: No JVD. No carotid bruits. RESPIRATORY: Good air entry. No crepitation. CARDIOVASCULAR: S1 and S2. Rate and rhythm regular. ABDOMEN: Full, soft, nontender. Bowel sounds positive. No hepatomegaly. EXTREMITIES: Trace pedal edema. No calf tenderness. NEUROLOGIC: The patient is alert and oriented. Cranial nerves 2 through 12 grossly intact. LABORATORY DATA: WBC 6.7, hemoglobin 8.4, platelet 42. Sodium 138, potassium 2.9, chloride 102, creatinine 1.37, lactic acid 1.3, magnesium 1.5, AST and ALT normal. Alkaline phosphatase is 139. Troponin less than 0.01, albumin 3.3. Urinalysis negative. Chest CTA shows no evidence of PE. IMPRESSION: 1. Persistent hypotension, possibly due to current chemo for multiple myeloma in the setting of recent postprandial emesis. We would continue IV fluid boluses, give a stat 2 L bolus. We admit to the ICU. We will start the patient on midodrine 10 mg t.i.d. for now. We will obtain panculture to rule out sepsis. 2. Hypokalemia and hypomagnesemia. We will replete. 3. Pancytopenia. We will continue to monitor. We will plan for transfusion if hemoglobin less than 7.5. Monitor platelet level. 4. Acute renal failure - possibly due to mild creatinine elevation, which increased from preop baseline of 0.7. Follow with aggressive IV fluid. PLAN: 1. Deep venous thrombosis prophylaxis, we will do SCDs. We will hold heparin since low platelets. 2. Advance directives discussed with the patient. Initially, wishes to be DNR, but later agreed to trial full code. Total time spent on review of record, and evaluation greater than 70 minutes. Job ID: [id number]
[2019-09-16] MEDS: Potassium Chloride 20 MEQ in Lactated Ringer's 1,000 ML IV SCH ×3 (06:03→23:12)
[2019-09-16] MEDS: CARBIDOPA PO SCH ×4 (06:50→18:15)
[2019-09-16] MEDS: LEVODOPA PO SCH ×4 (06:50→18:15)
[2019-09-16 07:51] LABS: Anion Gap 12 mmol/L (10-20); BUN (Urea Nitrogen) 21 mg/dL (8.4-25.7); Calc. Creatinine Clearance 51 mL/min (70-130); Calcium 7.1 mg/dL (7.8-10.44); Carbon Dioxide 26 mmol/L (22-29); Chloride 103 mmol/L (98-107); Estimated GFR-MDRD 35; Glucose 194 mg/dL (70-105); Potassium 3.3 mmol/L (3.5-5.1); Sodium 138 mmol/L (136-145)
--- NOTE | 2019-09-16 08:08 | CT ---
PRELIMINARY REPORT/[facility]/EMERGENCY AFTER HOURS PROCEDURE: PROCEDURE INFORMATION: Exam: CT Angiography Chest With Contrast Exam date and time: 09/16/2019 1:20 AM Clinical history: 59 years old, male; Other: Syncope; Patient HX: Er 12. 59 year old male presents to ED by EMS C/O dizziness with possible syncopal episodes. reports patient was sitting on the cou ch when he stood up and then sat back down, she asked him if he felt dizzy and did not respond and began to shake. Reports called EMS then patients started to respond. Reports being treated for ca ncer, received chemotherapy today. Prostate cancer TECHNIQUE: Imaging protocol: Computed tomographic angiography of the chest with intravenous contrast. 3D rendering: MIP reconstructed images were created and reviewed. COMPARISON: No relevant prior studies available. FINDINGS: Tubes, catheters and devices: Superior left anterior chest wall implanted device. Pulmonary arteries: Normal. No pulmonary emboli. Aorta: Normal aorta. Lungs: Dependent/compressive atelectasis in the left lower lobe. Pleural space: Small bilateral pleural effusions. Heart: Small pericardial effusion. Mediastinum: Esophagus is unremarkable. Kidneys and ureters: Left renal cyst. Lymph nodes: Unremarkable. No enlarged lymph nodes. Bones/joints: Multifocal lucent/lytic vertebral body lesions, potentially representing myeloma or met astases. Soft tissues: Unremarkable. IMPRESSION: 1. Small pericardial effusion. 2. Small bilateral pleural effusions. 3. Multifocal lucent/lytic vertebral body lesions, potentially representing myeloma or metastases. Thank you for allowing us to participate in the care of your patient. Dictated and Authenticated by: Sb Akers MD 09/16/2019 1:38 AM Central Time ([place] & [place]) FINAL REPORT CT ANGIOGRAM OF CHEST: HISTORY: Dizziness. Syncope. COMPARISON: None. TECHNIQUE: CT angiogram of chest performed in axial plane. Three-dimensional reformatted images are submitted fo r interpretation. FINDINGS/IMPRESSION: This report is in agreement with the preliminary report by Antonette. No evidence of pulmonary artery embo lism to the level of the segmental arteries. There are small bilateral effusions and there is a peric ardial effusion. Multifocal lucencies in the osseous structures suggesting osseous metastasis. Indete rminate hypodensities in the liver. Left renal cyst. Contracted gallbladder, incompletely evaluated. POS: OFF
[2019-09-16] MEDS ORDERED: Cosyntropin 250 MCG VIAL SLOW IVP SCH (09:00)
[2019-09-16] MEDS: Aspirin 81 mg Enteric Coated Tablet PO SCH (09:28)
[2019-09-16] MEDS: valACYclovir 500 MG TAB PO SCH (09:28)
[2019-09-16] MEDS: Famotidine 20 MG TAB PO SCH ×2 (09:28→20:41)
[2019-09-16] MEDS: Cefepime 1 GM in Sodium Chloride 0.9% 100 ML IVPB SCH ×2 (09:28→20:41)
[2019-09-16] MEDS ORDERED: Cefepime 1 GM in Sodium Chloride 0.9% 100 ML IVPB SCH (10:00)
--- NOTE | 2019-09-16 12:46 | CON ---
DATE OF CONSULTATION: REASON FOR CONSULTATION: Myeloma. HISTORY OF PRESENT ILLNESS: A 59-year-old male with IgA kappa myeloma with 3 extraosseous plasmacytomas including one in the kidney and multiple lytic lesions in the bones, status post autologous transplant at [facility] and currently on consolidation treatment with carfilzomib, Revlimid, and dexamethasone, presenting to the hospital with progressively worsening dizziness, weakness, and near syncope. The patient was last seen in the clinic on September 10 as a walk-in, complaining of nausea, weakness, and difficulty walking along with weight loss of 5 pounds in 9 days and 9 pounds in the last 4 weeks along with some vomiting. The patient's blood pressure was 111/68 at that time. Labs in the clinic showed chronic anemia and thrombocytopenia, which was secondary to treatment. The patient has a history of H pylori in the past and was treated for that. I referred him over to Gastroenterology for evaluation and he had a gastric emptying study on September 11 that showed delayed gastric emptying. Upon evaluation in the ER, he received 3 L of IV fluids and his blood pressure was not responsive, still 80s over 50s to 60s. He was admitted to the ICU and started on midodrine and continued IV fluids. This morning, he states that he feels better and does not feel dizzy anymore, but he and his are very upset because they do not know why he is having abdominal pain and weight loss. They have not seen a plate maker zinc for followup since his scan last week. Denies any other complaints at this time. PAST MEDICAL HISTORY: Multiple myeloma, Parkinson disease, prostate cancer, and anxiety. PAST SURGICAL HISTORY: Prostate resection, Parkinson's stimulator implant. ALLERGIES: CAT DANDER. SOCIAL HISTORY: Lives with his . No tobacco or alcohol. REVIEW OF SYSTEMS: Ten-point review of systems negative except as per HPI. FAMILY HISTORY: Noncontributory. PHYSICAL EXAMINATION: VITAL SIGNS: Afebrile, heart rate 86, blood pressure 88 to 105 over 56 to 59, respirations 18, and saturating 99% on room air. GENERAL APPEARANCE: The patient is lying in bed, in no acute distress. HEENT: Normocephalic and atraumatic. No scleral icterus. Stimulator pump electrodes are visible on scalp. NECK: Supple. RESPIRATIONS: Clear. Nonlabored. CARDIOVASCULAR: Regular rate and rhythm. ABDOMEN: Soft and nontender. EXTREMITIES: No significant edema. NEUROLOGIC: Cranial nerves 2 through 12 are grossly intact. LABORATORY DATA: White blood cell 6.7, hemoglobin 8.4, platelets 42. Sodium 138, potassium 3.3, BUN 20, creatinine 1.94, calcium 7.1, magnesium 1.5. AST 61, ALT less than 7, and lactic acid 1.3. IMAGING DATA: CT angio shows no pulmonary embolism. Small bilateral effusions and pericardial effusion and myeloma mets are seen in the bones. ASSESSMENT AND PLAN: A 59-year-old male with IgA kappa myeloma, status post autotransplant, currently on consolidation with Carfilzomib, Revlimid, and dexamethasone, presenting with dizziness, abdominal pain, nausea, vomiting, and weight loss. The patient has delayed gastric emptying on scan, potentially secondary to Parkinson disease and this could explain his weight loss, dehydration, and hypotension. Dr. Norton has been consulted and will see the patient in the hospital. Recommend trending CBC with p.r.n. blood transfusions for hemoglobin less than 7 or platelets less than 10. If the patient requires any procedures, platelets should be > 50. Thank you for this consult. Job ID: [id number] [facility]
[2019-09-16] MEDS ORDERED: Iopamidol-370 76% 500 ML 1 ML ONE (13:38)
--- NOTE | 2019-09-16 15:36 | CON ---
DATE OF CONSULTATION: 09/16/2019 REASON FOR CONSULTATION: Hypotension, IMCU stay. HISTORY OF PRESENT ILLNESS: The patient is a 59-year-old male, who was hospitalized yesterday with low blood pressure and presyncopal episodes. He has received hydration and he has been started on midodrine. He is actually undergoing therapy for multiple myeloma. He does not know whether or not he has been on steroids recently, but is assumed with chemo that he has been taking them at times. PAST MEDICAL HISTORY: 1. Multiple myeloma. 2. Prostate cancer. 3. Stem-cell transplant. 4. Parkinson's disease. PAST SURGICAL HISTORY: 1. He has had 2 MediPort placements and removals. He has also had a Parkinson's stimulator device implant in his left upper chest. 2. Prostate resection. ALLERGIES: CAT DANDER. SOCIAL HISTORY: Nonsmoker. Does not consume alcohol. Lives at home with his . FAMILY MEDICAL HISTORY: Unremarkable. REVIEW OF SYSTEMS: Otherwise negative. PHYSICAL EXAMINATION: VITAL SIGNS: Temperature 99.2, pulse 86, blood pressure 88/56, and O2 saturation 99%. GENERAL: He is pleasant, awake, no distress. HEENT: Unremarkable. NECK: No adenopathy or JVD. CHEST: He has a stimulator present in left upper portion of his chest. LUNGS: Clear. CARDIAC: S1 and S2. Regular. ABDOMEN: Soft and nontender. EXTREMITIES: No clubbing, cyanosis, or edema. LABORATORY DATA: Sodium 138, potassium 3.3, BUN 21, creatinine 1.9, and glucose 194. White blood cell count 6.7, hematocrit 25.4, and platelet count 42 with 45% neutrophils and 38% bands. CT of the chest was performed, which shows small bilateral effusions. No evidence of pulmonary embolism. ASSESSMENT: Hypotension-differential diagnosis would include volume depletion, sepsis, and adrenal insufficiency. RECOMMENDATION: 1. I would culture the patient, started on empiric antibiotics given the bandemia. 2. Perform ACTH stimulation test to rule out adrenal insufficiency and start steroids if chest is supportive of adrenal insufficiency. 3. Check echocardiogram to make sure he is not in some type of low output systolic heart failure. Job ID: [id number]
[2019-09-16] MEDS: Midodrine HCl 5 MG TAB PO SCH ×2 (16:02→20:41)
[2019-09-16] MEDS: LENALIDOMIDE 10 MG PO SCH (18:15)
[2019-09-17 04:20] LABS: #Lymphocytes 0.6 thou/uL (1.20-3.40); #Monocytes 0.2 thou/uL (0.11-0.59); #Neutrophils 1.1 thou/uL (1.40-6.50); %Basophils 0.7 % (0.0-1.0); %Eosinophils 0.9 % (0.0-10.0); %Lymphocytes 32.8 % (21.0-51.0); %Monocytes 12.2 % (0.0-10.0); %Neutrophils 53.4 % (42.0-75.0); Hemoglobin 7.7 g/dL (14.0-18.0); Mean Corpuscular HGB CONC 34.7 g/dL (32.0-36.0); Mean Corpuscular Hemoglobin 33.1 pg (27.0-31.0); Mean Corpuscular Volume 95.3 fL (78.0-98.0); Mean Platelet Volume 9.9 fL (7.4-10.4); Platelet Count 28 thou/uL (130-400); RBC Distribution Width 13.7 % (11.5-14.5); Red Blood Cell (RBC) Count 2.32 mill/uL (4.70-6.10)
[2019-09-17 04:31] LABS: Anion Gap 15 mmol/L (10-20); BUN (Urea Nitrogen) 31 mg/dL (8.4-25.7); Calc. Creatinine Clearance 51 mL/min (70-130); Calcium 7.2 mg/dL (7.8-10.44); Carbon Dioxide 19 mmol/L (22-29); Chloride 108 mmol/L (98-107); Estimated GFR-MDRD 36; Glucose 85 mg/dL (70-105); Potassium 3.3 mmol/L (3.5-5.1); Sodium 139 mmol/L (136-145)
[2019-09-17] MEDS: Potassium Chloride 20 MEQ in Lactated Ringer's 1,000 ML IV SCH ×3 (06:22→21:28)
[2019-09-17] MEDS: CARBIDOPA PO SCH ×4 (06:23→18:14)
[2019-09-17] MEDS: LEVODOPA PO SCH ×4 (06:23→18:14)
--- NOTE | 2019-09-17 09:12 | CON ---
DATE OF CONSULTATION: 09/16/2019 REASON FOR CONSULTATION: Nausea and vomiting. HISTORY OF PRESENT ILLNESS: Mr. Montiel is a 59-year-old gentleman who initially saw Dr. Fleming several years ago with epigastric pain and was found to have H pylori more recently. He saw Dr. Fleming in 12/2018, he had an EGD with H pylori which was treated, test of cure was negative and he had a colonoscopy that was normal. Subsequent to that, he was diagnosed with plasmacytoma, extramedullary. He had complications of spinal cord compression and a spot on his kidney. He ultimately had autologous bone marrow transplant at [facility]. He is on consolidation therapy with carfilzomib, Revlimid, and dexamethasone. He came to the hospital with dizziness, weakness, and near syncope. He has had some issues with chronic nausea and chronic left upper and mid epigastric pain. More recently in our office, he had a gastric emptying scan on 09/04, that was abnormal with delayed emptying. He has had chronic constipation issues as well. He reports that over the past 4 weeks, has also some vomiting after eating and nausea. He has been able to hold down liquids, so he is drinking seven large glasses of Gatorade or water daily. His blood pressure here was in the 80s and with IV fluids, he had resolution of this. There were no signs of sepsis. He reports he had a CAT scan at [facility], still showed a small spot in the kidney and spine, but no spinal cord compression. PAST MEDICAL HISTORY: Multiple myeloma, extramedullary plasmacytoma, Parkinson's, prostate cancer, anxiety. PAST SURGICAL HISTORY: Prostate resection, Parkinson's, stimulator implant. He has had upper and lower endoscopies in December of this year, which were negative. ALLERGIES: CAT DANDER. SOCIAL HISTORY: He lives with his . Sister at the bedside. He does not smoke or use drugs or drink alcohol. REVIEW OF SYSTEMS: Negative for dysphagia or odynophagia. Negative for cough, shortness of breath, fever, chills, dysuria, frequency, urgency, melena, hematochezia, or hematemesis. His appetite is diminished. He has lost some weight. FAMILY HISTORY: Noncontributory. HOME MEDICATIONS: 1. Valacyclovir daily. 2. Trazodone at bedtime. 3. Tramadol q.6 hours p.r.n. for pain. 4. MiraLAX. 5. Zofran. 6. Omeprazole. 7. Revlimid. 8. Lactulose p.r.n. 9. Docusate, stool softeners. 10. Carbidopa levodopa. 11. Aspirin. 12. The patient takes Bactrim a few times per week for PCP prophylaxis. In the past, he has been tried on Linzess for chronic constipation at 145 mcg that gave him some diarrhea. He was given 72 and then he states someone told him to stop that, but he is not taking it now. He has been offered Movantik as he was taking narcotic pain medicine at home, but declined that because he was worried there could be side effects. PRESENT MEDICATIONS: 1. Tylenol. 2. Aspirin. 3. Carbidopa levodopa. 4. Cefepime. 5. Famotidine. 6. Hydrocodone. 7. Revlimid. 8. Midodrine. 9. Zofran. 10. Protonix. 11. Valacyclovir. PHYSICAL EXAMINATION: GENERAL: He is resting comfortably in bed. He is in no distress. VITAL SIGNS: He has been afebrile. His T-max was 99.2, and was 99.1 yesterday. Pulse 82, blood pressure 101/67. HEENT: He is anicteric. Oropharynx is slightly dry. NECK: Supple without nodes. LUNGS: Clear. HEART: Regular rate and rhythm without clicks or murmurs. ABDOMEN: Soft and nontender. No palpable hepatosplenomegaly, hernias or masses. EXTREMITIES: No clubbing, cyanosis, or edema. LABORATORY STUDIES: White count 6.7. Hemoglobin 8.4, it was 11.9 on 07/30. Platelets are 42,000, it was 84,000 on 07/30. Sodium 138, potassium is 2.9 on admission, it is 3.3 today. Bicarb 26, BUN 21, creatinine 1.94, which were 17 and 1.37 on the . Liver function tests normal except for AST of 61, ALT was less than 7, alkaline phosphatase 139, albumin 3.1, protein 5.2, globulin was low at 2.1. Lipase was 6. Cortrosyn stim test at baseline of 2.6; 30 minutes 13; 60 minutes, 16; 90 minutes, 19. IMAGING STUDIES: On 09/16, he had a CT angio of the chest showed a small pericardial effusion, small bilateral pleural effusions, vertebral body lesions. It determined hyperdensities in the liver. No overt pulmonary emboli. Last CAT scan here of the abdomen is on 04/14/2019, normal. ASSESSMENT: 1. The patient is admitted with hypotensive, unclear etiology. Does not appear to have been vomiting a lot at home. His intake has been great, but I am not sure it is enough to explain the blood pressure in the 80s when he came in. There have been no signs of sepsis. Cortrosyn stimulation test was negative. He is on multiple medications after his autologous stem cell transplant to prevent HSV viral infection and pneumocystis. 2. Chronic constipation. This was present before and has been present for some time, likely related to his Parkinson's medicines. He has had a normal colonoscopy earlier this year. He has been on Linzess which was too strong at 145 mcg. It is unclear why he discontinued the 72 mcg. He was offered Movantik as he is on chronic pain medicine now, but refused it. He is on MiraLAX and lactulose. The lactulose is probably counterproductive. 3. Chronic nausea with gastroparesis on gastric emptying scan as of 09/11. He did have a normal EGD except for H pylori back in December of this year. I think that in light of all the changes since that time to diagnose his cancer, the stem cell transplant, and medications, an EGD would be warranted. On assessment, questionable liver lesions on his CT of the thorax. These have not been commented on before. It is unclear if this to be related to his malignancy. He has mildly elevated liver enzymes. RECOMMENDATIONS: 1. EGD tomorrow. 2. If EGD is negative, consider starting low-dose Movantik. If that is not acceptable via side effects, I would stop the lactulose and use MiraLAX and Senokot for his chronic constipation. 3. We would consider reimaging the liver with formal imaging in light of concern for vague liver lesions on his CT. I will follow along with you. Job ID: [id number]
--- NOTE | 2019-09-17 09:30 | PRG ---
DATE OF SERVICE: 09/17/2019 SUBJECTIVE: The patient appears to be doing better today. He is scheduled for an EGD later today. OBJECTIVE: VITAL SIGNS: Temperature 98.2, pulse 67, blood pressure 117/63. Generally, his systolic pressure has been in the 90s. His O2 saturations are 95%. HEENT: Unremarkable. NECK: No adenopathy. No JVD. LUNGS: A few crackles at the bases, best heard posteriorly. CARDIAC: S1 and S2. Regular. ABDOMEN: Soft. EXTREMITIES: No edema. IMAGING STUDIES: His echocardiogram showed no significant findings. His ACTH stimulation test showed that he responded appropriately to ACTH indicating he probably does not have adrenal insufficiency. LABORATORY DATA: Sodium 139, potassium 3.3, chloride 108, CO2 of 18, BUN 31, creatinine 1.9, glucose 85. White blood cell count 2, hematocrit 22.1, platelet count 28. ASSESSMENT: The patient is presenting with hypotension which seems to be secondary to volume depletion and/or blood loss. He does not appear to have cardiogenic shock or adrenal insufficiency. PLAN: 1. EEG is planned for today. 2. The patient may require blood products at the discretion of the hospitalist team. 3. We will follow peripherally. Job ID: [id number]
[2019-09-17] MEDS: Aspirin 81 mg Enteric Coated Tablet PO SCH (09:44)
[2019-09-17] MEDS: valACYclovir 500 MG TAB PO SCH (09:45)
[2019-09-17] MEDS: Midodrine HCl 5 MG TAB PO SCH ×3 (09:45→21:14)
[2019-09-17] MEDS: Famotidine 20 MG TAB PO SCH ×2 (09:45→21:00)
[2019-09-17] MEDS: Cefepime 1 GM in Sodium Chloride 0.9% 100 ML IVPB SCH ×2 (09:45→20:59)
--- NOTE | 2019-09-17 10:15 | PDOC.MOPN ---
Interval History: complains of low blood pressure, abdominal pain. - Vital Signs Vital Signs: Vital Signs (12 hours) Temp Pulse Ox 09/17/19 08:00 99 09/17/19 07:07 98.2 F 09/17/19 03:37 98.9 F 09/16/19 23:43 98.8 F Weight Admit Weight 194 lb 11.2 oz Weight 200 lb 3 oz Most Recent Monitor Data Heart Rate from ECG 66 NIBP 93/53 NIBP BP-Mean 66 Respiration from ECG 16 SpO2 95 - Physical Exam General: Alert, Oriented x3, No acute distress HEENT: Atraumatic, PERRLA, EOMI, Mucous membr. moist/pink Lungs: Clear to auscultation, Normal air movement Cardiovascular: Regular rate, Normal S1, Normal S2, No murmurs, Gallops, Rubs Abdomen: Normal bowel sounds, Soft, No tenderness, No hepatospenomegaly, No masses Extremities: No clubbing, No cyanosis, No edema, Normal pulses, No tenderness/ swelling Skin: No rashes, No breakdown, No significant lesion Neurological: Normal gait, Normal speech, Strength at 5/5 X4 ext, Normal tone, Sensation intact, Cranial nerves 3-12 NL, Reflexes 2+ Psych/Mental Status: Mental status NL, Mood NL - Labs Result Diagrams: 09/17/19 03:55 09/17/19 03:55 Lab results: Laboratory Results - last 24 hr 09/17/19 03:55: WBC 2.0 L, RBC 2.32 L, Hgb 7.7 L, Hct 22.1 L, MCV 95.3, MCH 33.1 H, MCHC 34.7, RDW 13.7, Plt Count 28 L*, MPV 9.9, Neutrophils % 53.4, Neutrophils % (Manual) Not Reportable, Lymphocytes % 32.8, Monocytes % 12.2 H, Eosinophils % 0.9, Basophils % 0.7, Neutrophils # 1.1 L, Lymphocytes # 0.6 L, Monocytes # 0.2, Eosinophils # 0.0, Basophils # 0.0 09/17/19 03:55: Sodium 139, Potassium 3.3 L, Chloride 108 H, Carbon Dioxide 19 L , Anion Gap 15, BUN 31 H, Creatinine 1.92 H, Estimated GFR (MDRD) 36, Glucose 85 , Calcium 7.2 L 09/16/19 09:00: Cortisol Response Status: lab reviewed by me A/P - Problem (1) Multiple myeloma Current Visit: Yes Code(s): C90.00 - MULTIPLE MYELOMA NOT HAVING ACHIEVED REMISSION Status: Acute (2) Thrombocytopenia Current Visit: Yes Code(s): D69.6 - THROMBOCYTOPENIA, UNSPECIFIED Status: Acute - Plan Plan: platelet transfusion for EGD. monitor CBC
--- NOTE | 2019-09-17 11:00 | CT ---
CT ABDOMEN WITH AND WITHOUT CONTRAST: HISTORY: Possible liver mass noted on chest CT. Multiple myeloma. Prostate cancer. COMPARISON: None. TECHNIQUE: Abdomen CT is performed with and without contrast following liver mass protocol. Coronal reformatted images are submitted for interpretation. FINDINGS: Lung bases: Small left-sided effusion. Adjacent parenchymal changes, likely due to atelectasis or asp iration. Heart: Normal heart size. No significant pericardial fluid. Aorta: Normal caliber. No periaortic fat stranding. Liver: Redemonstration of a hypodensity in the lateral segment of the left hepatic lobe measuring 0.9 cm. On the non-contrast series the attenuation coefficient is 15 Hounsfield units, on the post-contrast series the attenuation coefficient is 12 Hounsfield units and on the delayed images the attenuation coefficient is 14 Hounsfield units. No significant enhancement. Small subcentimeter cyst is favored. There is an additional hypodensity in the left hepatic lobe measuring 0.8 cm. On the non-contrast series the attenuation coefficient is 18 Hounsfield units and on the post contrast the attenuation coefficient is 25 Hounsfield units. On the delayed the attenuation coefficient is 17 Hounsfield units. Small, slightly complex cyst is favored. There are no enhancing masses in the liver. Spleen: Appropriate enhancement. Pancreas: Appropriate enhancement Adrenal glands: Symmetric enhancement Lymph nodes: No gastrohepatic, retrocrural or periportal lymphadenopathy Portal vein: Patent Gallbladder: Small amount of pericholecystic fluid, nonspecific. KIDNEYS Noncontrast: No evidence of obstructive uropathy. Left renal cyst is noted; cyst measures 3.5 cm. Contrast: Residual contrast from CT angiogram of the chest performed earlier today. Delayed: Limited evaluation of the collecting system due to inadequate delay. Mesentery: No mass, nephropathy, free air or free fluid Alimentary canal: Limited evaluation due to lack of oral contrast administration. No evidence of armando l obstruction. The ileocecal junction is normal. Normal caliber appendix. Scattered fecal material in a nondistended/nondilated colon. IMPRESSION: 1. Two subcentimeter complex hepatic cysts. No enhancing mass in the liver. 2. Left renal cyst. 3. Mild pericholecystic fluid. Correlate clinically for cholecystitis. Transcribed Date/Time: 09/17/2019 11:06 AM
[2019-09-17] MEDS ORDERED: Midazolam HCl 2 mg/2 ml Vial ONE (12:12)
[2019-09-17] MEDS ORDERED: Ketamine 50 MG/ML (10ML VIAL) ONE (12:23)
--- NOTE | 2019-09-17 14:17 | PQF ---
KIMBERLY HARTMANN MICHAEL, MD [id number] [facility]- B02 [id number] CLINICAL DOCUMENTATION IMPROVEMENT CLARIFICATION FORM: ICD-10 Updated PLEASE DO AN ADDENDUM TO THE PROGRESS NOTE WITH ANY DOCUMENTATION UPDATES OR ADDITIONS AND CARRY THROUGH TO DC SUMMARY. THANK YOU. DATE: 09/17/19 ATTN: Dr. King Please exercise your independent, professional judgment in responding to the clarification form. Clinical indicators are provided on the bottom of this form for your review Please check appropriate box(s): Pancytopenia due to: [ X] Pancytopenia due to Chemotherapy/antineoplastic drugs [ ] Pancytopenia due to other diagnosis (please specify if known): [ ] Other diagnosis [ ] Unable to determine In addition, please specify: Present on Admission (POA): [ X] Yes [ ] No [ ] Unable to determine For continuity of documentation, please document condition throughout progress notes and discharge summary. Thank You. CLINICAL INDICATORS - SIGNS / SYMPTOMS / LABS/ RESULTS AND LOCATION IN MR 09/17 wbc 2.0, rbc 2.32, hgb 7.7, plt 28 lab "Pancytopenia" per H&P 09/16 ([place]) RISK FACTORS / RESULTS AND LOCATION IN MR Cancer--> "Multiple Myeloma, currently on chemotherapy" per 09/16([place]) TREATMENT / RESULTS AND LOCATION IN MR Transfusions--> platelets orders 09/17 Oncology consult 09/16 per orders (This form is maintained as a part of the permanent medical record) 2014 [employer], [employer]. All Rights Reserved Kim Quinones, RN, BSN, CCDS MTDD
[2019-09-17] MEDS ORDERED: Ondansetron ODT 8 MG TAB SL PRN (15:27)
[2019-09-17] MEDS: LENALIDOMIDE 10 MG PO SCH (18:13)
--- NOTE | 2019-09-17 18:35 | PDOC.HOSPP ---
- Subjective Encounter Date: 09/17/19 Encounter Time: 14:00 Subjective: Chief complaint: Dizziness, presyncope Subjective: Patient seen on return from EGD, report pending, denies current symptoms, no chest pain or shortness of breath, BP in 120s/60s currently. Discussed with patient and some of the very long history of presyncope, of which it is noted patient has chronically poor appetite and appears to experience similar symptoms frequently after chemotherapy. - Objective Vital Signs & Weight: Vital Signs (12 hours) Temp Pulse Ox 09/17/19 15:19 98.8 F 09/17/19 11:25 98.8 F 09/17/19 08:00 99 09/17/19 07:07 98.2 F Weight Admit Weight 194 lb 11.2 oz Weight 200 lb 3 oz Most Recent Monitor Data Heart Rate from ECG 75 NIBP 105/63 NIBP BP-Mean 77 Respiration from ECG 22 SpO2 96 I&O: 09/16/19 09/17/19 09/18/19 06:59 06:59 06:59 Intake Total 1423 1860 Output Total 0 650 Balance 1423 1210 Result Diagrams: 09/17/19 03:55 09/17/19 03:55 Hospitalist ROS - Medication Medications: Active Medications Generic Name Dose Route Start Last Admin Trade Name Freq PRN Reason Stop Dose Admin Aspirin 81 mg 09/16/19 09:00 09/17/19 09:44 Ecotrin PO 81 mg DAILY SHAYLA Administration Famotidine 20 mg 09/16/19 09:00 09/17/19 09:45 Pepcid PO 20 mg BID SHAYLA Administration Potassium Chloride 20 meq/ 1,010 mls @ 125 mls/hr 09/16/19 04:45 09/17/19 17: 42 Lactated Ringer's IV Not Given .Q8H5M SHAYLA Cefepime HCl 1 gm/ Sodium 100 mls @ 200 mls/hr 09/16/19 21:00 09/17/19 09:45 Chloride IVPB 100 mls Q12HR SHAYLA Administration Midodrine 10 mg 09/16/19 15:00 09/17/19 15:55 Proamatine PO Not Given TID SHAYLA Pantoprazole Sodium 40 mg 09/16/19 09:00 09/17/19 09:45 Protonix PO 40 mg DAILY SHAYLA Administration Carbidopa/Levodopa [ 0 each 09/16/19 06:00 09/17/19 18:14 Rytary Er] 48.75/195 PO 1 each Mg Capsule 0600,1000,1400,1800 SHAYLA Administration Lenalidomide [ 0 each 09/16/19 18:00 09/17/19 18:13 Revlimid] 10 Mg Tab PO 1 each 1800 SHAYLA Administration Sodium Chloride 10 ml 09/16/19 21:00 09/17/19 09:46 Flush - Normal Saline IVF 10 ml Q12HR SHAYLA Administration Valacyclovir HCl 500 mg 09/16/19 09:00 09/17/19 09:45 Valtrex PO 500 mg DAILY SHAYLA Administration - Exam General Appearance: NAD, awake alert Eye: PERRL, anicteric sclera ENT: normocephalic atraumatic, moist mucosa Neck: supple, no JVD Heart: RRR, no murmur, no gallops, no rubs Respiratory: CTAB, no wheezes, no rales, no ronchi Gastrointestinal: soft, non-tender, non-distended, normal bowel sounds Extremities: no cyanosis, no clubbing, no edema Skin: no lesions, no rashes Neurological: cranial nerve grossly intact, normal sensation to touch, no weakness, no focal deficits Musculoskeletal: normal tone, normal strength Psychiatric: normal affect, normal behavior, A&O x 3 Hosp A/P - Plan Patient is a 59 year old male admitted for: # persistent hypotension - suspected due to chemotherapy for multiple myeloma with postprandial emesis and reduced appetite and PO intake. Patients oncologist is following, note reviewed and discussed appetite stimulants with them. - appreciate critical care assistance, cosyntropin stim test with satisfactory response and negative for adrenal insufficiency. on empiric sepsis treatment until infection can be excluded. - echo report reviewed, appears basically normal - oncology consulted, recommend transfuse RBC for hgb < 7 and platelet transfusions for platelets < 10, or < 50 if procedure needed - low grade fevers noted, moniotor vital signs in ICU for now # pancytopenia - likely due to oncologist process and chemotherapy, transfusion parameters as above, appreciate oncology assistance # nausea, vomiting, history of H pylori - GI on the case and had endoscopy, will follow final report and recs once available # hypokalemia - replete as needed # hypomagnisemia - replete as needed # acute renal failure - # history of parkinsons disease - suspected delayed GI transit resulting in constipation and reduced emptying time/gastroparesis related to Parkinsons and related meds per specialists reports # gastroparesis, constipation, delayed GI transit - reported due to Parkinsons and related medications, treat per GI currently Code status - my partner discussed with patient, initially said DNR but then reversed during conversation to full code
--- NOTE | 2019-09-17 19:49 | OP ---
DATE OF PROCEDURE: 09/17/2019 PROCEDURE PERFORMED: Esophagogastroduodenoscopy with biopsy. PREOPERATIVE DIAGNOSES: Vague abdominal pain, persistent nausea. The patient is undergoing esophagogastroduodenoscopy. POSTOPERATIVE DIAGNOSES: 1. Normal esophagus. 2. Mucosal hyperemia with multiple punctate erythematous spots throughout the stomach and also in the duodenum. Random biopsies obtained from the gastric antrum and gastric body. DESCRIPTION OF PROCEDURE: The patient was given 10 units of platelets before the procedure as he has had thrombocytopenia with platelet count of 28,000. The patient was given platelet transfusion on the day of surgery and subsequently was taken to the endoscopic room. The patient was placed in left lateral position and a bite block was placed. The patient was given sedation by Anesthesia Department. A Pentax video gastroscope under direct vision passed was down the oropharynx, past the GE junction, into the stomach and subsequently into the descending duodenum. The vocal cords appeared very healthy. The esophageal mucosa appeared normal throughout. There was no esophagitis or any fungus infection. The GE junction, no lesion seen. The gastric mucosa was diffusely hyperemic with multiple punctate small spots. These were seen throughout the stomach. The incisura angularis, no pathology. Random biopsies obtained from the gastric antrum and gastric body. The duodenal bulb, descending duodenum, no pathology. The stomach decompressed and scope removed. RECOMMENDATION: 1. Diet as tolerated. 2. Await gastric biopsy, and make further recommendation. Job ID: [id number]
[2019-09-17] MEDS: Senokot S 8.6-50 MG TAB PO SCH (21:00)
[2019-09-18] MEDS: Potassium Chloride 20 MEQ in Lactated Ringer's 1,000 ML IV SCH ×3 (01:50→22:09)
[2019-09-18] MEDS: LEVODOPA PO SCH ×4 (06:03→17:55)
[2019-09-18] MEDS: CARBIDOPA PO SCH ×4 (06:03→17:55)
[2019-09-18] MEDS: Famotidine 20 MG TAB PO SCH ×2 (09:23→20:42)
[2019-09-18] MEDS: Aspirin 81 mg Enteric Coated Tablet PO SCH (09:23)
[2019-09-18] MEDS: Cefepime 1 GM in Sodium Chloride 0.9% 100 ML IVPB SCH ×2 (09:23→20:40)
[2019-09-18] MEDS: Midodrine HCl 5 MG TAB PO SCH ×3 (09:23→20:42)
[2019-09-18] MEDS: Senokot S 8.6-50 MG TAB PO SCH ×2 (09:24→20:43)
[2019-09-18] MEDS: Polyethylene Glycol 3350 17 GM Packet PO SCH (09:24)
[2019-09-18] MEDS: valACYclovir 500 MG TAB PO SCH (09:24)
[2019-09-18] MEDS: Metoclopramide HCl 10 MG TAB PO SCH ×3 (13:04→20:42)
--- NOTE | 2019-09-18 14:00 | PRG ---
DATE OF SERVICE: 09/18/2019 SUBJECTIVE: Mr. Montiel says he has had three large bowel movements today. This has not really impacted his chronic nausea. He still feels early satiety and epigastric discomfort after eating. Oral intake has been minimal. He is about to start on Reglan 5 mg p.o. q.i.d. Gastric biopsies came back negative for H pylori. CT scan demonstrated liver lesions compatible with simple cysts. OBJECTIVE: VITAL SIGNS: Temperature 98.6, heart rate 72, blood pressure 107/69, and 93% oxygen saturation on room air. GENERAL: No acute distress. HEART: Regular rate and rhythm. LUNGS: Clear to auscultation bilaterally. ABDOMEN: Bowel sounds are present. Soft, nontender to palpation. EXTREMITIES: No peripheral edema. LABORATORY STUDIES: WBC 2.0, hemoglobin 7.7, and platelets 28. Sodium 139, potassium 3.3, BUN 31, creatinine 1.92, and calcium 7.2. IMAGING STUDIES: CT demonstrates left hepatic lobe lesion measuring 0.9 cm with a simple cyst favored, also additional hypodensity in the left hepatic lobe measuring 0.8 cm, which also favors small slightly complex cyst. No enhancing mass lesion in the liver. Pancreas and spleen enhance appropriately. The portal vein is patent. There is no lymphadenopathy. A mild amount of pericholecystic fluid. ASSESSMENT AND PLAN: 1. Nausea and vomiting. 2. Gastroparesis. The patient does have documented gastroparesis as per recent gastric emptying scan. This is probably multifactorial, possible contribution from his underlying Parkinson's, and the chemotherapy is probably contributing to the symptoms as well. Notably, he had good bowel movements today, but did not feel it affected the nausea. I agree with having started the Reglan today. I agree with Nutrition recommendations for caloric supplementation as well. No plan for any further endoscopy or imaging. Otherwise, continue symptomatic treatment. Job ID: [id number]
--- NOTE | 2019-09-18 17:15 | PDOC.HOSPP ---
- Subjective Encounter Date: 09/18/19 Encounter Time: 17:08 Subjective: CC: presyncope Subjective: Patient in bed, not yet holding down food, denies chest pain/ shortness of breath. Some mild abdominal pain, nausea persists, had BM. - Objective Vital Signs & Weight: Vital Signs (12 hours) Temp Pulse Ox 09/18/19 16:00 98.2 F 09/18/19 11:08 98.6 F 09/18/19 08:00 96 09/18/19 07:42 99.0 F Weight Admit Weight 194 lb 11.2 oz Weight 197 lb 6.4 oz Most Recent Monitor Data Heart Rate from ECG 69 NIBP 102/81 NIBP BP-Mean 88 Respiration from ECG 24 SpO2 93 I&O: 09/17/19 09/18/19 09/19/19 06:59 06:59 06:59 Intake Total 1860 1620 Output Total 650 1100 Balance 1210 520 Result Diagrams: 09/17/19 03:55 09/17/19 03:55 Hospitalist ROS - Medication Medications: Active Medications Generic Name Dose Route Start Last Admin Trade Name Freq PRN Reason Stop Dose Admin Aspirin 81 mg 09/16/19 09:00 09/18/19 09:23 Ecotrin PO 81 mg DAILY SHAYLA Administration Famotidine 20 mg 09/16/19 09:00 09/18/19 09:23 Pepcid PO 20 mg BID SHAYLA Administration Potassium Chloride 20 meq/ 1,010 mls @ 125 mls/hr 09/16/19 04:45 09/18/19 15: 22 Lactated Ringer's IV 1,010 mls .Q8H5M SHAYLA Administration Cefepime HCl 1 gm/ Sodium 100 mls @ 200 mls/hr 09/16/19 21:00 09/18/19 09:23 Chloride IVPB 100 mls Q12HR SHAYLA Administration Metoclopramide HCl 5 mg 09/18/19 11:30 09/18/19 13:04 Reglan PO 5 mg ACHS SHAYLA Administration Midodrine 10 mg 09/16/19 15:00 09/18/19 15:21 Proamatine PO 10 mg TID SHAYLA Administration Pantoprazole Sodium 40 mg 09/16/19 09:00 09/18/19 09:23 Protonix PO 40 mg DAILY SHAYLA Administration Carbidopa/Levodopa [ 0 each 09/16/19 06:00 09/18/19 15:21 Rytary Er] 48.75/195 PO 1 each Mg Capsule 0600,1000,1400,1800 SHAYLA Administration Lenalidomide [ 0 each 09/16/19 18:00 09/17/19 18:13 Revlimid] 10 Mg Tab PO 1 each 1800 SHAYLA Administration Polyethylene Glycol 17 gm 09/18/19 09:00 09/18/19 09:24 Miralax PO 17 gm DAILY SHAYLA Administration Senna/Docusate Sodium 1 tab 09/17/19 21:00 09/18/19 09:24 Senokot S PO 1 tab BID SHAYLA Administration Sodium Chloride 10 ml 09/16/19 21:00 09/18/19 09:24 Flush - Normal Saline IVF Not Given Q12HR SHAYLA Valacyclovir HCl 500 mg 09/16/19 09:00 09/18/19 09:24 Valtrex PO 500 mg DAILY SHAYLA Administration - Exam General Appearance: NAD, awake alert Eye: PERRL, anicteric sclera ENT: normocephalic atraumatic, no oropharyngeal lesions, moist mucosa Neck: supple, symmetric, no JVD Heart: RRR, no murmur, no gallops, no rubs Respiratory: CTAB, no wheezes, no rales, no ronchi Gastrointestinal: soft, non-tender, non-distended, normal bowel sounds Extremities: no cyanosis, no clubbing, no edema Skin: no lesions, no rashes Neurological: cranial nerve grossly intact, normal sensation to touch, no weakness, no focal deficits Musculoskeletal: normal tone, normal strength Psychiatric: normal affect, normal behavior Hosp A/P - Plan Patient is a 59 year old male admitted for: # persistent hypotension - suspected due to chemotherapy for multiple myeloma with postprandial emesis and reduced appetite and PO intake. Patients oncologist is following, note reviewed - appreciate critical care assistance, cosyntropin stim test with satisfactory response and negative for adrenal insufficiency. on empiric sepsis treatment until infection can be excluded. - echo report reviewed, appears basically normal - oncology consulted, recommend transfuse RBC for hgb < 7 and platelet transfusions for platelets < 10, or < 50 if procedure needed - low grade fevers noted, monitor vital signs closely # pancytopenia - likely due to oncologist process and chemotherapy, transfusion parameters as above, appreciate oncology assistance # nausea, vomiting, history of H pylori - GI on the case and had endoscopy, report reviewed, pathology negative for HP this admission # hypokalemia - replete as needed # hypomagnisemia - replete as needed # acute renal failure - Cr stable at 1.9, trend BMP daily, continue hydration # history of parkinsons disease - suspected delayed GI transit resulting in constipation and reduced emptying time/gastroparesis related to Parkinsons and related meds per specialists reports # gastroparesis, constipation, delayed GI transit - reported due to Parkinsons and related medications, treat per GI currently Code status - my partner discussed with patient, initially said DNR but then reversed during conversation to full code
[2019-09-18] MEDS ORDERED: Potassium Chloride 40 MEQ in Sodium Chloride 0.9% 250 ML 250 ML IVPB SCH (17:30)
[2019-09-18] MEDS: LENALIDOMIDE 10 MG PO SCH (17:57)
[2019-09-19 04:39] LABS: Anion Gap 9 mmol/L (10-20); BUN (Urea Nitrogen) 12 mg/dL (8.4-25.7); Calc. Creatinine Clearance 118 mL/min (70-130); Calcium 7.4 mg/dL (7.8-10.44); Carbon Dioxide 25 mmol/L (22-29); Chloride 112 mmol/L (98-107); Estimated GFR-MDRD Greater than 90; Glucose 78 mg/dL (70-105); Magnesium 1.7 mg/dL (1.6-2.6); Potassium 3.7 mmol/L (3.5-5.1); Sodium 142 mmol/L (136-145)
[2019-09-19 05:10] LABS: Band 19 % (5-11); Hemoglobin 7.4 g/dL (14.0-18.0); Lymphocytes 31 % (21-51); MDiff Complete? YES; Mean Corpuscular HGB CONC 33.4 g/dL (32.0-36.0); Mean Corpuscular Hemoglobin 31.8 pg (27.0-31.0); Mean Corpuscular Volume 95.4 fL (78.0-98.0); Mean Platelet Volume 10.9 fL (7.4-10.4); Monocytes 8 % (0-10); Neutrophil 41 % (42-75); Platelet Count 22 thou/uL (130-400); Platelet Morphology Comment Appears Decreased; RBC Distribution Width 13.7 % (11.5-14.5); Red Blood Cell (RBC) Count 2.31 mill/uL (4.70-6.10); White Blood Cell (WBC) Count 2.4 thou/uL (4.8-10.8)
[2019-09-19] MEDS: Potassium Chloride 20 MEQ in Lactated Ringer's 1,000 ML IV SCH (06:19)
[2019-09-19] MEDS: CARBIDOPA PO SCH ×2 (06:22→09:13)
[2019-09-19] MEDS: LEVODOPA PO SCH ×2 (06:22→09:13)
[2019-09-19] MEDS: Metoclopramide HCl 10 MG TAB PO SCH ×2 (07:27→11:22)
[2019-09-19] MEDS: Midodrine HCl 5 MG TAB PO SCH (09:10)
[2019-09-19] MEDS: valACYclovir 500 MG TAB PO SCH (09:10)
[2019-09-19] MEDS: Aspirin 81 mg Enteric Coated Tablet PO SCH (09:10)
[2019-09-19] MEDS: Senokot S 8.6-50 MG TAB PO SCH (09:11)
[2019-09-19] MEDS: Famotidine 20 MG TAB PO SCH (09:11)
[2019-09-19] MEDS: Cefepime 1 GM in Sodium Chloride 0.9% 100 ML IVPB SCH (09:11)
[2019-09-19] MEDS: Polyethylene Glycol 3350 17 GM Packet PO SCH (09:11)
[2019-09-19 11:08] VITALS: TEMP 97.6
[2019-09-19 12:58] VITALS: BMI 28.3
--- NOTE | 2019-09-22 09:18 | PQF ---
KIMBERLY HARTMANN MICHAEL, MD [id number] [facility]- B02 [id number] CLINICAL DOCUMENTATION CLARIFICATION FORM: POST DISCHARGE Addendum to original discharge summary date: ____ Late entry note date: __ DATE:09/22/2019 ATTN:SANDY GODOY MD Please exercise your independent, professional judgment in responding to the clarification form. Clinical indicators are provided on the bottom of this form for your review Please check appropriate box(s): [ X ] Hypotension due to chemotherapy [ X ] Hypotension due to volume depletion BOTH PRESENT AND CONTRIBUTING [ ] Hypotension due to MAMI [ ] Hypotension NOS [ ] Other diagnosis [ ] Unable to determine For continuity of documentation, please document condition throughout progress notes and discharge summary. Thank You. CLINICAL INDICATORS - SIGNS / SYMPTOMS / LABS BP-81/43-Documented in ED on 09/16 by Kelly Madrid Syncope,anemia,hypokaliemia-Documented in ED on 09/16 by Kelly Madrid Acute renal failure-Documented in H&P on 09/16 by Xuan Del Cid Dizziness-Documented in Hospitalist progress note on 09/17 by Fernando Osborne The patient is presenting with hypotension which seems to be secondary to volume depletion and /or blood loss-Documented in Progress note on 09/17 by Wilber jung Persistent hypotension-Suspected due to chemotherapy for multiple myeloma with postprandial emesis and reduced appetite and po intake-Documented in Hospitalist progress note on 09/18 by Fernando Osborne RISK FACTORS Syncope,anemia,hypokaliemia-Documented in ED on 09/16 by Kelly Madrid Chemotherapy for multiple myeloma-Documented in Hospitalist progress note on by Fernando Osborne Acute renal failure-Documented in H&P on 09/16 by Xuan Del Cid TREATMENTS: We would continue IV fluid boluses-Documented in H&P on 09/16 by Xuan Del Cid Follow with aggressive IV fluid-Documented in H&P on 09/16 by Xuan Del Cid ECHO-Documented in Hospitalist progress note on 09/18 by Fernando HALL [employer]ation Technician [employer] Win[employer] View[employer] (This form is maintained as a part of the permanent medical record) 2014 [employer], [employer]. All Rights Reserved Reina [email or web address] [not provided] MTDD
--- NOTE | 2019-09-27 21:08 | EKG ---
Test Reason : Blood Pressure : / mmHG Vent. Rate : 103 BPM Atrial Rate : 103 BPM P-R Int : 130 ms QRS Dur : 098 ms QT Int : 416 ms P-R-T Axes : 076 021 032 degrees QTc Int : 544 ms Sinus tachycardia Possible Left atrial enlargement Nonspecific ST and T wave abnormality Abnormal ECG Confirmed by BRADLEY BURRELL ([id number]), avid editor QAMAR SHAIKH ([id number]) on 09/27/2019 9:07:17 PM Referred By: Confirmed By:BRADLEY BURRELL
== END 2019-09-19 14:44 | disposition home or self-care (01) | DRG 640 ==
LOC: ERS 22:23 → IMCU/EMU 09-16 03:52
PROVIDERS: ADMIT Internal Medicine; ATTEND Internal Medicine
PROC: 0DB68ZX Excision of Stomach, Via Natural or Artificial Opening Endoscopic, Diagnostic (ICD-10-PCS; principal; 2019-09-17)
DX: E86.9 Volume depletion, unspecified (principal); D61.810 Antineoplastic chemotherapy induced pancytopenia; N17.9 Acute kidney failure, unspecified; C90.00 Multiple myeloma not having achieved remission; Z94.84 Stem cells transplant status; I95.2 Hypotension due to drugs; T45.1X5A Adverse effect of antineoplastic and immunosuppressive drugs, initial encounter; G20 Parkinson's disease; K59.00 Constipation, unspecified; K31.84 Gastroparesis; D64.9 Anemia, unspecified; E87.6 Hypokalemia; R40.2362 Coma scale, best motor response, obeys commands, at arrival to emergency department; R40.2142 Coma scale, eyes open, spontaneous, at arrival to emergency department; R40.2252 Coma scale, best verbal response, oriented, at arrival to emergency department; E83.42 Hypomagnesemia; D69.6 Thrombocytopenia, unspecified
CPT/HCPCS: 36415; 36430; 71045; 71275; 74170; 80048; 80053; 80400; 81003; 81015; 83605; 83690; 83735; 84484; 85025; 86850; 86900; 86901; 87040; 87086; 88305; 88312; 93005; 93306; 96361; 96365; J0692; J2250; J3475; J3480; J3490; J7050; J7120; P9035; Q9967

== ENCOUNTER 2019-10-10 15:59 | Emergency (ER) | payer OTHER ==
[2019-10-10] MEDS ORDERED: Dexamethasone 10 MG/ML VIAL ONE (16:41)
== END 2019-10-10 16:46 | disposition home or self-care (01) ==
LOC: ERS 15:59
DX: R05 Cough (principal); G20 Parkinson's disease; Z79.899 Other long term (current) drug therapy; Z79.82 Long term (current) use of aspirin
CPT/HCPCS: 99283; J1100

== ENCOUNTER 2020-05-20 11:39 | Emergency (ER) | payer OTHER ==
[2020-05-20 12:26] LABS: #Eosinphils 0.5 thou/uL (0.0-0.7); #Lymphocytes 1.8 thou/uL (1.20-3.40); #Monocytes 0.8 thou/uL (0.11-0.59); #Neutrophils 2.9 thou/uL (1.40-6.50); %Basophils 0.3 % (0.0-1.0); %Lymphocytes 29.7 % (21.0-51.0); %Monocytes 13.2 % (0.0-10.0); %Neutrophils 48.8 % (42.0-75.0); Hemoglobin 11.4 g/dL (14.0-18.0); Mean Corpuscular HGB CONC 30.3 g/dL (32.0-36.0); Mean Corpuscular Hemoglobin 29.7 pg (27.0-31.0); Mean Platelet Volume 9.2 fL (7.4-10.4); Platelet Count 186 thou/uL (130-400); RBC Distribution Width 16.2 % (11.5-14.5); Red Blood Cell (RBC) Count 3.85 mill/uL (4.70-6.10)
--- NOTE | 2020-05-20 12:42 | RAD ---
EXAM: Single view of the chest HISTORY: Active cancer and stem cell patient with low blood count COMPARISON: 04/21/2020 FINDINGS: Single view of the chest shows a normal sized cardiomediastinal silhouette. A generator pr ojects over the left chest wall. There is no evidence of consolidation, mass, or pleural effusion. Degenerative changes are seen in the spine. IMPRESSION: No evidence of acute cardiopulmonary disease
[2020-05-20 13:30] LABS: ALT (SGPT) Less than 7 U/L (8-55); AST (SGOT) 12 U/L (5-34); Albumin 3.4 g/dL (3.4-4.8); Alkaline Phosphatase 76 U/L (40-110); Anion Gap 14 mmol/L (10-20); BUN (Urea Nitrogen) 13 mg/dL (8.4-25.7); Bilirubin, Total 0.9 mg/dL (0.2-1.2); CK (CPK) 22 U/L (30-200); Calc. Creatinine Clearance 0 mL/min (70-130); Carbon Dioxide 23 mmol/L (23-31); Chloride 102 mmol/L (98-107); Estimated GFR-MDRD Greater than 90; Globulin 1.9 g/dL (2.4-3.5); Glucose 100 mg/dL (80-115); Magnesium 1.5 mg/dL (1.6-2.6); Potassium 3.9 mmol/L (3.5-5.1); Protein, Total 5.3 g/dL (5.8-8.1); Sodium 135 mmol/L (136-145)
[2020-05-20] MEDS ORDERED: Magnesium 2 GM/50 ML BAG (IN WATER) ONE (14:23)
== END 2020-05-20 16:40 | disposition home or self-care (01) ==
LOC: ERS 11:39
DX: E83.42 Hypomagnesemia (principal); R19.7 Diarrhea, unspecified; R63.4 Abnormal weight loss; D64.9 Anemia, unspecified; C90.00 Multiple myeloma not having achieved remission; G20 Parkinson's disease; Z79.899 Other long term (current) drug therapy
CPT/HCPCS: 36415; 71045; 80053; 82550; 83735; 84484; 85025; 93005; 96365; 96366; J3475

== ENCOUNTER 2021-03-03 09:29 | Outpatient (CLI) | payer OTHER ==
[2021-03-03 11:05] LABS: Hemoglobin 11.9 g/dL (13.5-17.5); Mean Corpuscular HGB CONC 32.8 g/dL (32.0-36.0); Mean Corpuscular Hemoglobin 32.2 pg (27.0-33.0); Mean Corpuscular Volume 98.4 fl (81.2-95.1); Mean Platelet Volume 10.8 fl (7.4-10.4); Platelet Count 204 10x3/uL (150-450); RBC Distribution Width 15.2 % (11.5-14.5); Red Blood Cell (RBC) Count 3.69 10x6/uL (4.32-5.72); White Blood Cell (WBC) Count 5.8 10x3/uL (3.5-10.5)
[2021-03-03 11:16] LABS: Anion Gap 18 mmol/L (10-20); BUN (Urea Nitrogen) 15 mg/dL (8.4-25.7); Calc. Creatinine Clearance 0 mL/min (70-130); Calcium 9.6 mg/dL (7.8-10.44); Carbon Dioxide 24 mmol/L (23-31); Chloride 105 mmol/L (98-107); Glucose 133 mg/dL (80-115); Potassium 4.5 mmol/L (3.5-5.1); Sodium 142 mmol/L (136-145)
[2021-03-03 16:44] LABS: SARS-CoV-2 PCR by NAA Not Detected (NotDetected)
== END 2021-03-03 09:30 | disposition home or self-care (01) ==
LOC: LABBT 09:29
PROVIDERS: ATTEND Surgery
DX: Z01.812 Encounter for preprocedural laboratory examination (principal); Z20.822 Contact with and (suspected) exposure to COVID-19; C79.51 Secondary malignant neoplasm of bone
CPT/HCPCS: 80048; 85027; 87635; U0003; U0005

== ENCOUNTER 2021-03-08 12:13 | Day surgery (SDC) | payer OTHER ==
[2021-03-07 15:51] VITALS: BMI 35.5
[2021-03-08] MEDS ORDERED: Fentanyl 100 MCG/2 ML VIAL ONE (12:52)
[2021-03-08] MEDS ORDERED: PROPOFOL 60 ML ONE (12:52)
[2021-03-08] MEDS ORDERED: Bupivacaine 0.25% HCL 30 ML VIAL ONE (12:53)
[2021-03-08] MEDS ORDERED: Lidocaine 1% w/Epinephrine 1:100K 20 ML VIAL ONE (12:53)
[2021-03-08] MEDS ORDERED: Silver Nitrate Application 1 EACH ONE ×2 (13:21)
== END 2021-03-08 15:15 | disposition home or self-care (01) ==
LOC: SDC 12:13
PROVIDERS: ATTEND Surgery
PROC: 0JH60WZ Insertion of Totally Implantable Vascular Access Device into Chest Subcutaneous Tissue and Fascia, Open Approach (ICD-10-PCS; principal; 2021-03-08)
PROC: 02HV33Z Insertion of Infusion Device into Superior Vena Cava, Percutaneous Approach (ICD-10-PCS; principal; 2021-03-08)
DX: C90.00 Multiple myeloma not having achieved remission (principal); G20 Parkinson's disease; J44.9 Chronic obstructive pulmonary disease, unspecified; K21.9 Gastro-esophageal reflux disease without esophagitis; J30.81 Allergic rhinitis due to animal (cat) (dog) hair and dander; E66.9 Obesity, unspecified; Z68.35 Body mass index [BMI] 35.0-35.9, adult; Z79.82 Long term (current) use of aspirin; Z79.899 Other long term (current) drug therapy; Z88.8 Allergy status to other drugs, medicaments and biological substances
CPT/HCPCS: 36415; 71045; 80053; 82248; 83615; 84100; 84550; C1788; J0690; J1642; J2704; J3010; S0020

== ENCOUNTER 2021-03-17 09:48 | Outpatient (CLI) | payer OTHER | END 2021-03-17 09:49 | disposition home or self-care (01) | LOC: BICRAD 09:48 | PROVIDERS: ATTEND Physician Assistant Medical | DX: R06.2 Wheezing (principal); R91.8 Other nonspecific abnormal finding of lung field | CPT/HCPCS: 71046 ==

== ENCOUNTER 2021-04-05 09:25 | Outpatient (CLI) | payer OTHER ==
[~2021-04-05 09:25] MED LIST: Iopamidol 370 76% 100 ML VIAL ONE
== END 2021-04-05 09:26 | disposition home or self-care (01) ==
LOC: CT 09:25
PROVIDERS: ATTEND Urology
DX: C61 Malignant neoplasm of prostate (principal); N28.1 Cyst of kidney, acquired; K76.89 Other specified diseases of liver; N28.89 Other specified disorders of kidney and ureter; R93.5 Abnormal findings on diagnostic imaging of other abdominal regions, including retroperitoneum; Z87.440 Personal history of urinary (tract) infections
CPT/HCPCS: 74178

== ENCOUNTER 2021-05-18 11:46 | Outpatient (CLI) | payer OTHER | END 2021-05-18 11:47 | disposition home or self-care (01) | LOC: BICRAD 11:46 | PROVIDERS: ATTEND Specialist | DX: I50.9 Heart failure, unspecified (principal); R60.9 Edema, unspecified | CPT/HCPCS: 71046 ==

== ENCOUNTER 2021-10-17 16:46 | Inpatient (IN) | payer OTHER ==
[2021-10-17 17:32] LABS: #Basophils 0.1 thou/uL (0.0-0.2); #Lymphocytes 3.5 thou/uL (1.20-3.40); #Monocytes 0.8 thou/uL (0.11-0.59); #Neutrophils 2.7 thou/uL (1.40-6.50); %Basophils 0.7 % (0.0-1.0); %Eosinophils 0.4 % (0.0-10.0); %Lymphocytes 49.8 % (21.0-51.0); %Monocytes 10.8 % (0.0-10.0); %Neutrophils 38.3 % (42.0-75.0); Mean Corpuscular Hemoglobin 32.5 pg (27.0-31.0); Mean Corpuscular Volume 98.6 fL (78.0-98.0); Mean Platelet Volume 9.5 fL (7.4-10.4); Platelet Count 94 thou/uL (130-400); RBC Distribution Width 16.9 % (11.5-14.5)
[2021-10-17 17:42] LABS: INR-International Normal Ratio 1.5; PTT 32.7 sec (22.9-36.1); Prothrombin Time 18.4 sec (12.0-14.7)
[2021-10-17 17:58] LABS: ALT (SGPT) 11 U/L (8-55); AST (SGOT) 27 U/L (5-34); Albumin 2.8 g/dL (3.4-4.8); Alkaline Phosphatase 101 U/L (40-110); Anion Gap 13 mmol/L (10-20); BUN (Urea Nitrogen) 6 mg/dL (8.4-25.7); Bilirubin, Total 0.9 mg/dL (0.2-1.2); Calc. Creatinine Clearance 0 mL/min (70-130); Calcium 7.8 mg/dL (7.8-10.44); Carbon Dioxide 27 mmol/L (23-31); Chloride 102 mmol/L (98-107); Globulin 1.7 g/dL (2.4-3.5); Glucose 106 mg/dL (80-115); Potassium 3.6 mmol/L (3.5-5.1); Protein, Total 4.5 g/dL (5.8-8.1); Sodium 138 mmol/L (136-145)
[2021-10-17] MEDS ORDERED: Cefepime 2 GM VIAL ONE (19:10)
[2021-10-17] MEDS ORDERED: Ondansetron ODT 4 MG TAB PO PRN (21:11)
[2021-10-17] MEDS ORDERED: Acetaminophen 325 MG TAB PO PRN (21:11)
[2021-10-17] MEDS ORDERED: Acetaminophen 650 MG Suppository PR PRN (21:11)
[2021-10-17] MEDS ORDERED: Heparin 10,000 UNITS/ 10 ML VIAL SLOW IVP SCH (21:15)
[2021-10-17] MEDS ORDERED: Heparin 25,000 units/D5W 500 ML IVPB SCH (21:15)
[2021-10-17 21:50] LABS: Hemoglobin 10.3 g/dL (14.0-18.0); Platelet Count 84 thou/uL (130-400)
[2021-10-17 22:31] VITALS: BMI 31.9
[2021-10-17] MEDS ORDERED: Apixaban 5 MG TAB PO SCH (23:00)
[2021-10-17] MEDS: Sodium Chloride 0.9% 1,000 ML IV SCH (23:00)
[2021-10-18] MEDS ORDERED: VANCOMYCIN 1.25 GM/250 ML BAG 1.25 GM in Premix Bag 1 BAG IVPB SCH (00:12)
[2021-10-18] MEDS ORDERED: VANCOMYCIN 2 GRAM/400 ML BAG 2 GM in Premix Bag 1 BAG IVPB SCH (00:30)
[2021-10-18 06:28] LABS: Anion Gap 12 mmol/L (10-20); BUN (Urea Nitrogen) 5 mg/dL (8.4-25.7); Calc. Creatinine Clearance 139 mL/min (70-130); Calcium 7.5 mg/dL (7.8-10.44); Carbon Dioxide 24 mmol/L (23-31); Chloride 107 mmol/L (98-107); Glucose 75 mg/dL (80-115); Potassium 3.4 mmol/L (3.5-5.1); Sodium 140 mmol/L (136-145)
[2021-10-18 06:34] LABS: #Basophils 0.1 thou/uL (0.0-0.2); #Eosinphils 0.1 thou/uL (0.0-0.7); #Lymphocytes 1.9 thou/uL (1.20-3.40); #Monocytes 0.6 thou/uL (0.11-0.59); %Basophils 1.3 % (0.0-1.0); %Eosinophils 1.4 % (0.0-10.0); %Lymphocytes 42.1 % (21.0-51.0); %Monocytes 12.2 % (0.0-10.0); Hemoglobin 10.5 g/dL (14.0-18.0); Mean Corpuscular HGB CONC 31.7 g/dL (32.0-36.0); Mean Corpuscular Hemoglobin 31.8 pg (27.0-31.0); Mean Platelet Volume 9.3 fL (7.4-10.4); Platelet Count 83 thou/uL (130-400); White Blood Cell (WBC) Count 4.5 thou/uL (4.8-10.8)
[2021-10-18] MEDS: Cefepime 2 GM in Sodium Chloride 0.9% 100 ML IVPB SCH ×2 (08:52→20:31)
[2021-10-18] MEDS: Apixaban 5 MG TAB PO SCH ×2 (08:56→20:31)
[2021-10-18] MEDS ORDERED: FLU VACC QS2021-22(6MOS UP)/PF 60 MCG/0.5 ML SYRINGE IM ONE (09:00)
[2021-10-18] MEDS ORDERED: Prevnar 13-Val Conj/PF 0.5 ML SYRINGE IM ONE (09:00)
[2021-10-18] MEDS ORDERED: Acetaminophen 500 MG TAB PO PRN (09:40)
[2021-10-18] MEDS ORDERED: Polyethylene Glycol 3350 17 GM Packet PO PRN (09:40)
[2021-10-18 10:24] LABS: SARS-CoV-2 PCR by NAA Not Detected (NotDetected)
[2021-10-18] MEDS: Carbidopa/Levodopa [Rytary Er] 48.75 MG/195 MG Capsule.Er PO SCH ×4 (10:43→20:29)
[2021-10-18] MEDS: Sodium Chloride 0.9% 1,000 ML IV SCH ×2 (11:53→20:29)
[2021-10-18] MEDS ORDERED: Potassium Chloride 20 MEQ TAB PO SCH (13:00)
[2021-10-18] MEDS ORDERED: Midodrine HCl 5 MG TAB PO SCH (13:00)
[2021-10-18] MEDS: Vancomycin 1.5 GRAM/300 ML BAG 1.5 GM in Premix Bag 1 BAG IVPB SCH (15:35)
[2021-10-18] MEDS: Linaclotide [Linzess] 145 MCG Capsule PO SCH ×2 (15:35→20:30)
[2021-10-18] MEDS: valACYclovir 500 MG TAB PO SCH (20:37)
[2021-10-19] MEDS: Sodium Chloride 0.9% 1,000 ML IV SCH ×3 (00:54→21:15)
[2021-10-19] MEDS: Vancomycin 1.5 GRAM/300 ML BAG 1.5 GM in Premix Bag 1 BAG IVPB SCH (00:54)
[2021-10-19] MEDS: Apixaban 5 MG TAB PO SCH ×2 (08:45→21:11)
[2021-10-19] MEDS: Cefepime 2 GM in Sodium Chloride 0.9% 100 ML IVPB SCH ×2 (08:45→21:13)
[2021-10-19] MEDS: Midodrine HCl 5 MG TAB PO SCH (08:46)
[2021-10-19] MEDS ORDERED: Midodrine HCl 5 MG TAB PO SCH (09:00)
[2021-10-19] MEDS ORDERED: Potassium Chloride 20 MEQ TAB PO SCH (09:45)
[2021-10-19] MEDS ORDERED: Furosemide 40 MG/4 ML VIAL SLOW IVP SCH (09:45)
[2021-10-19 12:36] LABS: Vancomycin, Trough 31.2 ug/mL
[2021-10-19] MEDS: Carbidopa/Levodopa [Rytary Er] 48.75 MG/195 MG Capsule.Er PO SCH ×4 (12:39→21:12)
[2021-10-19] MEDS ORDERED: Vancomycin 1.5 GRAM/300 ML BAG 1.5 GM in Premix Bag 1 BAG IVPB SCH (13:00)
[2021-10-19] MEDS: Potassium Chloride 20 MEQ TAB PO SCH (13:00)
[2021-10-19] MEDS: Albumin 25% 25 GM/100 ML BOT IVPB SCH ×3 (13:35→23:21)
[2021-10-19] MEDS: Furosemide 40 MG/4 ML VIAL SLOW IVP SCH (14:00)
[2021-10-19] MEDS: Linaclotide [Linzess] 145 MCG Capsule PO SCH (21:00)
[2021-10-19] MEDS: valACYclovir 500 MG TAB PO SCH (21:12)
[2021-10-19 21:37] LABS: Platelet Count 77 thou/uL (130-400)
[2021-10-20 00:43] LABS: Vancomycin, Random 20.2 ug/mL (See Comment)
[2021-10-20] MEDS: Vancomycin HCl 750 MG in Sodium Chloride 0.9% 250 ML 250 ML IVPB SCH ×2 (02:27→14:53)
[2021-10-20] MEDS: Albumin 25% 25 GM/100 ML BOT IVPB SCH (05:55)
[2021-10-20] MEDS: Furosemide 40 MG/4 ML VIAL SLOW IVP SCH ×2 (05:56→14:40)
[2021-10-20 07:40] LABS: #Eosinphils 0.1 thou/uL (0.0-0.7); #Lymphocytes 1.6 thou/uL (1.20-3.40); #Monocytes 0.4 thou/uL (0.11-0.59); #Neutrophils 1.5 thou/uL (1.40-6.50); %Basophils 0.6 % (0.0-1.0); %Eosinophils 2.4 % (0.0-10.0); %Lymphocytes 44.3 % (21.0-51.0); %Monocytes 11.2 % (0.0-10.0); %Neutrophils 41.6 % (42.0-75.0); Hemoglobin 9.5 g/dL (14.0-18.0); Mean Corpuscular HGB CONC 33.4 g/dL (32.0-36.0); Mean Corpuscular Hemoglobin 32.7 pg (27.0-31.0); Mean Corpuscular Volume 97.9 fL (78.0-98.0); Mean Platelet Volume 9.3 fL (7.4-10.4); Platelet Count 74 thou/uL (130-400); RBC Distribution Width 16.7 % (11.5-14.5); Red Blood Cell (RBC) Count 2.89 mill/uL (4.70-6.10); White Blood Cell (WBC) Count 3.7 thou/uL (4.8-10.8)
[2021-10-20 07:49] LABS: ALT (SGPT) Less than 7 U/L (8-55); AST (SGOT) 21 U/L (5-34); Albumin 3.1 g/dL (3.4-4.8); Alkaline Phosphatase 85 U/L (40-110); Anion Gap 11 mmol/L (10-20); BUN (Urea Nitrogen) 6 mg/dL (8.4-25.7); Bilirubin, Total 1.2 mg/dL (0.2-1.2); CRP (Inflammatory) 6.41 mg/dL (= or < 0.5); Calc. Creatinine Clearance 154 mL/min (70-130); Calcium 8.1 mg/dL (7.8-10.44); Carbon Dioxide 27 mmol/L (23-31); Chloride 108 mmol/L (98-107); Globulin 1.4 g/dL (2.4-3.5); Glucose 82 mg/dL (80-115); Magnesium 1.1 mg/dL (1.6-2.6); Potassium 3.1 mmol/L (3.5-5.1); Protein, Total 4.5 g/dL (5.8-8.1); Sodium 143 mmol/L (136-145)
[2021-10-20] MEDS ORDERED: Potassium Chloride 20 MEQ TAB PO SCH (08:45)
[2021-10-20] MEDS ORDERED: Magnesium Sulfate 4 GM in Sodium Chloride 0.9% 250 ML 250 ML IVPB SCH (08:45)
[2021-10-20] MEDS: Carbidopa/Levodopa [Rytary Er] 48.75 MG/195 MG Capsule.Er PO SCH ×4 (08:46→21:38)
[2021-10-20] MEDS: Cefepime 2 GM in Sodium Chloride 0.9% 100 ML IVPB SCH ×2 (08:53→21:38)
[2021-10-20] MEDS: Apixaban 5 MG TAB PO SCH ×2 (08:53→21:38)
[2021-10-20] MEDS: Midodrine HCl 5 MG TAB PO SCH (08:55)
[2021-10-20] MEDS ORDERED: Ergocalciferol 1.25 MG(50,000 UNITS) CAP PO SCH (09:00)
[2021-10-20] MEDS: Potassium Chloride 20 MEQ TAB PO SCH (13:08)
[2021-10-20] MEDS: Linaclotide [Linzess] 145 MCG Capsule PO SCH (21:39)
[2021-10-20] MEDS: valACYclovir 500 MG TAB PO SCH (22:14)
[2021-10-21] MEDS: Vancomycin HCl 750 MG in Sodium Chloride 0.9% 250 ML 250 ML IVPB SCH ×2 (02:27→15:22)
[2021-10-21] MEDS: Furosemide 40 MG/4 ML VIAL SLOW IVP SCH ×2 (05:49→14:57)
[2021-10-21] MEDS: Carbidopa/Levodopa [Rytary Er] 48.75 MG/195 MG Capsule.Er PO SCH ×4 (08:02→19:58)
[2021-10-21] MEDS: Cefepime 2 GM in Sodium Chloride 0.9% 100 ML IVPB SCH ×2 (08:47→20:01)
[2021-10-21] MEDS: Apixaban 5 MG TAB PO SCH ×2 (08:53→20:01)
[2021-10-21] MEDS: Midodrine HCl 5 MG TAB PO SCH (08:55)
[2021-10-21 09:16] LABS: #Eosinphils 0.1 thou/uL (0.0-0.7); #Lymphocytes 2.2 thou/uL (1.20-3.40); #Monocytes 0.6 thou/uL (0.11-0.59); #Neutrophils 2.2 thou/uL (1.40-6.50); %Basophils 0.2 % (0.0-1.0); %Eosinophils 1.2 % (0.0-10.0); %Lymphocytes 42.9 % (21.0-51.0); %Monocytes 12.1 % (0.0-10.0); %Neutrophils 43.6 % (42.0-75.0); Hemoglobin 11.1 g/dL (14.0-18.0); Mean Corpuscular HGB CONC 32.3 g/dL (32.0-36.0); Mean Corpuscular Hemoglobin 31.7 pg (27.0-31.0); Mean Corpuscular Volume 98.3 fL (78.0-98.0); Mean Platelet Volume 9.4 fL (7.4-10.4); Platelet Count 83 thou/uL (130-400); RBC Distribution Width 16.8 % (11.5-14.5); White Blood Cell (WBC) Count 5.1 thou/uL (4.8-10.8)
[2021-10-21 09:35] LABS: ALT (SGPT) Less than 7 U/L (8-55); AST (SGOT) 31 U/L (5-34); Albumin 3.2 g/dL (3.4-4.8); Alkaline Phosphatase 115 U/L (40-110); Anion Gap 14 mmol/L (10-20); BUN (Urea Nitrogen) 8 mg/dL (8.4-25.7); Bilirubin, Total 1.2 mg/dL (0.2-1.2); Calc. Creatinine Clearance 159 mL/min (70-130); Calcium 8.2 mg/dL (7.8-10.44); Carbon Dioxide 27 mmol/L (23-31); Chloride 103 mmol/L (98-107); Globulin 1.7 g/dL (2.4-3.5); Glucose 82 mg/dL (80-115); Magnesium 1.8 mg/dL (1.6-2.6); Potassium 3.2 mmol/L (3.5-5.1); Protein, Total 4.9 g/dL (5.8-8.1); Sodium 141 mmol/L (136-145)
[2021-10-21] MEDS: Potassium Chloride 20 MEQ TAB PO SCH (13:28)
[2021-10-21 14:26] LABS: Vancomycin, Trough 19.8 ug/mL
[2021-10-21] MEDS: Linaclotide [Linzess] 145 MCG Capsule PO SCH (19:59)
[2021-10-21] MEDS: valACYclovir 500 MG TAB PO SCH (20:01)
[2021-10-21] MEDS: Ondansetron PF 4 MG/2 ML Vial IVP PRN (20:38)
[2021-10-21 22:03] LABS: Hemoglobin 11.5 g/dL (14.0-18.0); Platelet Count 82 thou/uL (130-400)
[2021-10-22] MEDS: Vancomycin HCl 750 MG in Sodium Chloride 0.9% 250 ML 250 ML IVPB SCH ×2 (01:10→14:42)
[2021-10-22] MEDS: Furosemide 40 MG/4 ML VIAL SLOW IVP SCH ×2 (07:02→14:41)
[2021-10-22 07:07] LABS: #Eosinphils 0.1 thou/uL (0.0-0.7); #Lymphocytes 2.4 thou/uL (1.20-3.40); #Monocytes 0.7 thou/uL (0.11-0.59); %Basophils 0.9 % (0.0-1.0); %Lymphocytes 46.2 % (21.0-51.0); %Monocytes 13.4 % (0.0-10.0); %Neutrophils 38.6 % (42.0-75.0); Hemoglobin 11.1 g/dL (14.0-18.0); Mean Corpuscular HGB CONC 33.8 g/dL (32.0-36.0); Mean Corpuscular Volume 97.6 fL (78.0-98.0); Mean Platelet Volume 9.7 fL (7.4-10.4); Platelet Count 71 thou/uL (130-400); RBC Distribution Width 16.7 % (11.5-14.5); Red Blood Cell (RBC) Count 3.36 mill/uL (4.70-6.10); White Blood Cell (WBC) Count 5.2 thou/uL (4.8-10.8)
[2021-10-22 07:16] LABS: ALT (SGPT) Less than 7 U/L (8-55); AST (SGOT) 29 U/L (5-34); Alkaline Phosphatase 116 U/L (40-110); Anion Gap 14 mmol/L (10-20); BUN (Urea Nitrogen) 10 mg/dL (8.4-25.7); Bilirubin, Total 1.1 mg/dL (0.2-1.2); Calc. Creatinine Clearance 150 mL/min (70-130); Calcium 8.2 mg/dL (7.8-10.44); Carbon Dioxide 28 mmol/L (23-31); Chloride 100 mmol/L (98-107); Globulin 1.6 g/dL (2.4-3.5); Glucose 84 mg/dL (80-115); Magnesium 1.5 mg/dL (1.6-2.6); Protein, Total 4.6 g/dL (5.8-8.1); Sodium 139 mmol/L (136-145)
[2021-10-22 07:23] LABS: Potassium 2.9 mmol/L (3.5-5.1)
[2021-10-22] MEDS ORDERED: Potassium Chloride 20 MEQ TAB PO SCH (08:15)
[2021-10-22] MEDS ORDERED: Magnesium Sulfate 4 GM in Sodium Chloride 0.9% 250 ML 250 ML IVPB SCH (08:30)
[2021-10-22] MEDS: Cefepime 2 GM in Sodium Chloride 0.9% 100 ML IVPB SCH (08:30)
[2021-10-22] MEDS ORDERED: Potassium Chloride 40 MEQ in Sodium Chloride 0.9% 250 ML 250 ML IVPB SCH (08:30)
[2021-10-22] MEDS: Apixaban 5 MG TAB PO SCH (08:42)
[2021-10-22] MEDS: Midodrine HCl 5 MG TAB PO SCH (08:42)
[2021-10-22] MEDS: Ondansetron PF 4 MG/2 ML Vial IVP PRN (09:20)
[2021-10-22] MEDS: Carbidopa/Levodopa [Rytary Er] 48.75 MG/195 MG Capsule.Er PO SCH ×2 (10:06→12:44)
[2021-10-22 12:18] VITALS: BP 110/68; TEMP 97.3
[2021-10-22] MEDS: Potassium Chloride 20 MEQ TAB PO SCH (12:28)
[2021-10-22] MEDS ORDERED: Bisacodyl 10 MG SUPP PR SCH (14:00)
[2021-10-22 15:07] LABS: Anion Gap 13 mmol/L (10-20); BUN (Urea Nitrogen) 10 mg/dL (8.4-25.7); Calc. Creatinine Clearance 150 mL/min (70-130); Calcium 8.1 mg/dL (7.8-10.44); Carbon Dioxide 25 mmol/L (23-31); Chloride 100 mmol/L (98-107); Glucose 96 mg/dL (80-115); Magnesium 2.3 mg/dL (1.6-2.6); Potassium 3.7 mmol/L (3.5-5.1); Sodium 134 mmol/L (136-145)
[2021-10-22] MEDS ORDERED: Vancomycin HCl 750 MG in Sodium Chloride 0.9% 250 ML 250 ML IVPB SCH (16:00)
== END 2021-10-22 16:49 | disposition home or self-care (01) | DRG 871 ==
LOC: ERS 16:46 → T4-A 20:32 → T4-B 22:19
PROVIDERS: ADMIT Student in an Organized Health Care Education/Training Program; ATTEND Family Medicine
DX: A41.9 Sepsis, unspecified organism (principal); J18.9 Pneumonia, unspecified organism; I26.99 Other pulmonary embolism without acute cor pulmonale; C90.00 Multiple myeloma not having achieved remission; L03.116 Cellulitis of left lower limb; Z20.822 Contact with and (suspected) exposure to COVID-19; G20 Parkinson's disease; D69.6 Thrombocytopenia, unspecified; Z85.46 Personal history of malignant neoplasm of prostate; Z88.5 Allergy status to narcotic agent; Z79.01 Long term (current) use of anticoagulants; Z79.82 Long term (current) use of aspirin; Z79.899 Other long term (current) drug therapy; Z91.81 History of falling
CPT/HCPCS: 36415; 36416; 71275; 80048; 80053; 80202; 83605; 83735; 83880; 85014; 85018; 85025; 85049; 85610; 85730; 86140; 87040; 93970; 94640; J0692; J1940; J1956; J2405; J3370; J3475; J3480; J3490; J7050; J7620; P9047; U0003; U0005